=== PATIENT | female | born 1955 | race Caucasian/White ===

== ENCOUNTER 2019-12-05 11:58 | Emergency (ER) | payer MEDICARE, SELFPAY ==
[2019-12-05 12:24] LABS: Glucose Point of Care 139 (65-105)
[2019-12-05 12:27] VITALS: BP 164/80; PULSE 84; RESP 13; TEMP 37.1; O2SAT 97
[2019-12-05] MEDS: FAMOTIDINE 20 MG/2 ML VIAL IV PUSH (12:35)
[2019-12-05] MEDS: diphenhydrAMINE HCl INJ 50 MG/ML VIAL 25 MG IV PUSH (12:37)
[2019-12-05] MEDS: methylPREDNISolone SOD SUCC 125 MG VIAL 80 MG IV PUSH (12:40)
[2019-12-05 12:41] VITALS: BP 149/71; PULSE 78; RESP 10; O2SAT 98
[2019-12-05 12:42] VITALS: BP 149/71; PULSE 82; RESP 13; O2SAT 98
[2019-12-05 12:59] LABS: Glucose 148 mg/dL (65-105)
--- NOTE | 2019-12-05 13:01 | ED.ALLEREA ---
HPI - Allergic Reaction General Chief complaint: Allergic Reaction Stated complaint: allergic reaction Time Seen by Provider: 12/05/19 12:08 Source: patient Mode of arrival: ambulatory Limitations: no limitations History of Present Illness HPI narrative: Patient with history of presents for evaluation of a left reaction to the face that began yesterday evening and has worsened throughout the night. Patient states that she has had other episodes with allergic reaction to the face as she has sensitive skin and is allergic to multiple fragrances. Patient reports itching, swelling, burning from her eyelids down to her chin. Patient denies involvement inside of her mouth or in her throat. Patient denies chest tightness, shortness of breath or trouble swallowing or breathing. Patient states she normally has been put on some prednisone and her symptoms resolve over a few days. She has not had any ill effects from the prednisone other than elevated blood sugar. Patient is not on insulin but takes Jardiance for her blood sugars twice daily. Patient denies being on lisinopril. Related Data Home Medications Medication Instructions Recorded Confirmed calcium carbonate 600 mg calcium 600 mg PO DAILY 05/04/19 (1,500 mg) tablet cholecalciferol (vitamin D3) 25 1,000 unit PO DAILY 05/04/19 mcg (1,000 unit) chewable tablet chlorthalidone 12.5 mg PO DAILY 12/05/19 pantoprazole 40 mg PO QAM 12/05/19 Allergies Allergy/AdvReac Type Severity Reaction Status Date / Time SADIE Inhibitors Allergy Unknown Unknown Verified 12/05/19 12:35 fluticasone Allergy Unknown Unknown Verified 12/05/19 12:35 latex Allergy Unknown Unknown Verified 12/05/19 12:35 Penicillins Allergy Unknown Rash Verified 12/05/19 12:35 Review of Systems Review of Systems: Narrative: CONSTITUTIONAL: Denies fever, chills, or sweats. EYES: Denies visual changes, redness, or discharge. ENT: Denies rhinorrhea, congestion, sore throat, or otalgia. CARDIOVASCULAR: Denies chest pain, palpitations, or edema. RESPIRATORY: Denies cough or dyspnea. GASTROINTESTINAL: Denies abdominal pain, nausea, vomiting, or diarrhea. GENITOURINARY: Denies dysuria or hematuria. SKIN: Reports rash and itching. MUSCULOSKELETAL: Denies back pain, joint pain, or myalgia. NEUROLOGIC: Denies headache, numbness, dizziness, or weakness. PSYCHIATRIC: Denies anxiety or depression. [facility] Past Medical History Medical History (Updated 12/05/19 @ 13:25 by Neftaly Chen PA-C) [place] (actinic keratosis) Essential (primary) hypertension Gastroesophageal reflux disease Mixed hyperlipidemia Type 2 diabetes mellitus with retinopathy, without long-term current use of insulin Family History Family History (Updated 08/15/16 @ 14:56 by DOCTOR UNKNOWN) Other Diabetes mellitus Family history of cardiovascular disease Hypertension Social History Social History Smoking status: Never smoker Alcohol intake: current Gender identity (if verbalized by the patient): Female Exam Narrative: Exam Narrative: GENERAL: Well-appearing, well-nourished, and in no acute distress. HEAD: Normocephalic, atraumatic. EYES: PERRLA and EOMI. ENT: Nares clear, no rhinorrhea or epistaxis. Mucous membranes moist. Oropharynx without tonsillar hypertrophy exudate or other lesions. No rash or swelling noted to oropharynx. Airway patent. Bilateral TMs pearly crespo nonbulging NECK: Supple. No adenopathy or masses. CHEST: Clear to auscultation. No respiratory distress. No wheezes rales or rhonchi HEART: Regular rate and rhythm. ABDOMEN: Soft, nontender, nondistended, normal active bowel sounds. EXTREMITIES: Normal range of motion. No edema. SKIN: Swelling with slight warmth and erythema noted to bilateral eyelids cheeks nose and chin. No drainage or open wounds appreciated. Warm, dry. NEURO: No focal deficits. Alert and oriented x3. PSYCH: Normal mood and affect. Course Vital Signs Vital signs: Vital Signs
[2019-12-05 13:02] VITALS: BP 139/56; PULSE 67; RESP 11; TEMP 36.8; O2SAT 99
== END 2019-12-05 13:15 | disposition home or self-care (01) ==
PROVIDERS: Physician Assistant; Emergency Provider Emergency Medicine; PCP Internal Medicine
DX: L23.9 Allergic contact dermatitis, unspecified cause (principal); I10 Essential (primary) hypertension; K21.9 Gastro-esophageal reflux disease without esophagitis; E78.2 Mixed hyperlipidemia; E11.319 Type 2 diabetes mellitus with unspecified diabetic retinopathy without macular edema
CPT/HCPCS: 36415; 82947; 96374; 96375; 99284; J1200; J2930

== ENCOUNTER → 2020-03-14 12:26 | Outpatient (CLI) | payer MEDICARE, SELFPAY ==
--- NOTE | ~2020-03-14 | MR_ITS ---
EXAMINATION: MR wrist RT wo con DATE: 03/14/2020 13:20 INDICATION: Chronic pain and intermittent swelling at the radial/volar aspect of the right wrist. TECHNIQUE: Magnetic resonance imaging (MRI) of the right wrist was performed without intravenous cont rast. Sequences performed include axial PD-weighted FSE and PD-weighted FS FSE, coronal PD-weighted F S FSE and T1-weighted SE, and sagittal PD-weighted FS FSE and PD-weighted FSE. COMPARISON: Right hand radiographs dated 02/23/2020 FINDINGS: Intrinsic ligaments: Partial tear of the central membranous component of the scapholunate ligament. The dorsal and volar c omponents appear to remain intact. The lunotriquetral ligament is normal. Triangular fibrocartilage complex (TFCC): Partial tear of the ulnar styloid attachment of the angular fibrocartilage complex. There is an addit ional shallow partial thickness tear along the distal articular surface of the central fiber cartilag inous disc. The radial and foveal attachments, the dorsal and volar radioulnar ligaments and the luno triquetral ligaments are normal. The extensor carpi ulnaris tendon sheath is normal. Extensor wrist: Extensor tendons of the wrist are normal. No tenosynovitis. Flexor wrist: The flexor tendons of the wrist are normal. No abnormality in the carpal tunnel with normal median n erve. Guyon's canal: Guyon's canal including the ulnar nerve and artery are normal. Bones/other: Normal marrow signal. No fracture, erosions, avascular necrosis or abnormal marrow replacing process. Mild osteoarthritis at the distal radioulnar, radiocarpal, triscaphe and first carpal metacarpal gabriele nts. No focal cartilage defects or underlying degenerative subarticular changes appreciated. There is a multilobulated ganglion cyst positioned immediately deep to the marker at the volar aspect of the wrist which extends proximally 1.8 cm medial collateral along the deep margin radioscaphocapitate lig ament and which measures up to 5 x 5 mm in maximal orthogonal dimensions. IMPRESSION: 1. 18 x 5 x 5 mm ganglion cyst at the volar aspect of the wrist which underlies the marker indicating the region of concern. 2. Partial tear of the central fiber cartilaginous disc and ulnar styloid attachment of the triangula r fibrocartilage complex. 3. Partial tear of the central membranous component of the scapholunate ligament which is of doubtful clinical significance with intact dorsal and volar components. 4. 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 Reviewed, dictated and finalized at location A. INE PRECISION ETCHER IMPRESSION: 1. 18 x 5 x 5 mm ganglion cyst at the volar aspect of the wrist which underlies the marker indicating the region of concern. 2. Partial tear of the central fiber cartilaginous disc and ulnar styloid attac hment of the triangular fibrocartilage complex. 3. Partial tear of the central membranous component of the scapholunate ligamen t which is of doubtful clinical significance with intact dorsal and volar compo nents. 4. Mild posterior articular osteoarthritis at the wrist and radial aspect of th e carpus.
== END ==
PROVIDERS: PCP Internal Medicine; Visit Provider Orthopaedic Surgery
DX: M25.831 Other specified joint disorders, right wrist (principal); M19.041 Primary osteoarthritis, right hand
CPT/HCPCS: 73221

== ENCOUNTER 2020-03-27 12:47 | Outpatient (CLI) | payer MEDICARE, SELFPAY ==
--- NOTE | 2020-03-27 12:48 | ECG_ITS ---
Measurements Intervals [place] Rate: 73 P: 42 VA: 170 QRS: 28 QRSD: 99 T: 162 QT: 358 QTc: 395 Interpretive Statements SINUS RHYTHM DELAYED PRECORDIAL R/S TRANSITION ST-T WAVE ABNORMALITY IN HIGH LATERAL LEADS- CONSIDER ISCHEMIA BASELINE ARTIFACT- V4-V5 ABNORMAL ECG Electronically Signed On 03-27-2020 13:29:04 ELEMENTARY TUTOR by Eddie Gutierrez D.O.
== END 2020-03-27 12:48 | disposition home or self-care (01) ==
LOC: ANHSURGERY 12:48
PROVIDERS: PCP Internal Medicine; Visit Provider Orthopaedic Surgery
DX: Z01.810 Encounter for preprocedural cardiovascular examination (principal); R94.31 Abnormal electrocardiogram [ECG] [EKG]
CPT/HCPCS: 93005

== ENCOUNTER 2020-04-03 00:14 | Outpatient (CLI) | payer MEDICARE, SELFPAY ==
[2020-04-03 20:45] LABS: SARS-CoV-2 RNA PCR Negative
== END 2020-04-03 00:15 | disposition home or self-care (01) ==
LOC: ANHCOVIDDT 00:14
PROVIDERS: PCP Internal Medicine; Visit Provider Orthopaedic Surgery
DX: Z01.818 Encounter for other preprocedural examination (principal); Z20.828 Contact with and (suspected) exposure to other viral communicable diseases
CPT/HCPCS: 87635; C9803; U0003

== ENCOUNTER 2020-04-06 01:51 | Day surgery (SDC) | payer MEDICARE, SELFPAY ==
[2020-03-22 13:16] VITALS: BMI 24.1
--- NOTE | 2020-03-24 14:02 | PC.NURSE ---
DATE AND TIME CHANGE GIVEN. NO CHANGE IN HEALTH HX SINCE LAST INTERVIEW ON 03/23/20
--- NOTE | 2020-03-29 11:07 | PM.IMHP ---
H&P: HPI History of Present Illness Date/Time: 03/29/20 11:07 Chief complaint: right carpal tunnel syndrome, right ganglion cyst Narrative: Ilda Thomas is a 64 year old female With right wrist pain and mass for the past year. Mass over the radial side of the wrist tender to palpation. Pain at the wrist which radiates into the palm. Numbness and tingling of the thumb and index finger. Not relieved with previous conservative treatment. Patient presents for operative treatment. MRI of the right wrist was done which shows radial sided cyst with location next to median nerve. Review of Systems Constitutional: Constitutional: Denies fever(s) Eyes: Eyes: Denies blurry vision ENT: Reports Normal hearing present Cardiovascular: Cardiovascular: Denies chest pain and Denies dyspnea Respiratory: Respiratory: Denies dyspnea and Denies wheezing Gastrointestinal: Gastrointestinal: Denies abdominal pain Genitourinary: Genitourinary: Denies urinary urgency Musculoskeletal: Musculoskeletal: Reports as per HPI and Denies numbness Integumentary/Breasts: Skin/Breast: Denies changing lesions and Denies sores Neurologic: Reports Normal hearing present, Denies behavioral changes, Denies confusion, Denies numbness and Denies convulsions Psychiatric: Psychiatric: Denies behavioral changes, Denies confusion and Denies hallucinations Endocrine: Endocrine: Denies heat intolerance Hematologic/Lymphatic: Hematologic/Lymphatic: Denies easy bleeding Allergic/Immunologic: Allergic/Immunologic: Denies wheezing PMFSH Past Medical History Medical History [place] (actinic keratosis) Allergies Carpal tunnel syndrome of right wrist Essential (primary) hypertension Fatty liver Gastroesophageal reflux disease Heart disease High cholesterol Hypertension Irritable bowel syndrome Latex allergy Mass of joint of right wrist Mixed hyperlipidemia Osteopenia Seasonal allergies Type 2 diabetes mellitus with retinopathy, without long-term current use of insulin Vision abnormalities Surgical History Surgical History H/O: hysterectomy Hx of cholecystectomy Family History Family History Mother Heart disease Hypertension Diabetes mellitus Other Family history of cardiovascular disease Social History Social History Years smoked: 3 Smoking status: Never smoker Smoking end date: 05/05/73 Alcohol intake: current Gender identity (if verbalized by the patient): Female Spiritual care concerns: No Meds Home Medications and Allergies Home Medications Medication Instructions Recorded Confirmed Type olmesartan 20 mg tablet 20 mg PO DAILY #90 tablet 06/07/19 03/24/20 Rx chlorthalidone 12.5 mg PO DAILY 12/05/19 03/24/20 History krill oil 500 mg capsule 1,000 mg PO DAILY cap 02/09/20 03/24/20 History metaxalone 800 mg tablet 400 mg PO BID PRN #90 tablet 02/09/20 03/24/20 Rx multivitamin 1 tablet PO DAILY 02/09/20 03/24/20 History calcium carbonate-vitamin D3 1 tablet PO BID 03/22/20 03/24/20 History [Lars-600 With Vitamin D] dorzolamide 1 drp OPHTHALMIC (EYE) BID 03/22/20 03/24/20 History empagliflozin [Jardiance] 12.5 mg PO DAILY 03/22/20 03/24/20 History ezetimibe 10 mg PO DAILY 03/22/20 03/24/20 History potassium chloride [K-Tab] 10 meq PO QPM 03/22/20 03/24/20 History Allergies Allergy/AdvReac Type Severity Reaction Status Date / Time SADIE Inhibitors Allergy Unknown COUGHING Verified 03/24/20 10:32 adhesive tape Allergy Unknown Itching/RED Verified 03/24/20 10:32 NESS fluticasone Allergy Unknown Unknown Verified 03/24/20 10:32 latex Allergy Unknown ITCHING/ROQUE Verified 03/24/20 10:32 H Penicillins Allergy Unknown Rash Verified 03/24/20 10:32 Exam Const: General: cooperative, healthy appea
--- NOTE | 2020-04-06 11:26 | WPDHPUPDATE1 ---
History and Physical Update Update Date/Time: 04/06/20 11:26 History and Physical has been reviewed, including an updated exam of the patient. There are NO changes in the patient's condition. Covid test negative. Risks, benefits, and alternatives have been discussed and questions answered. Patient agrees to proceed with procedure.
[2020-04-06] MEDS: ACETAMINOPHEN 500 MG TABLET 1000 MG PO (11:36)
[2020-04-06 11:43] VITALS: BP 142/60; PULSE 73; RESP 14; TEMP 36.4; O2SAT 100; BMI 25.0
[2020-04-06 12:08] LABS: Glucose Point of Care 165 (65-105)
[2020-04-06] MEDS: KETOROLAC 15 MG/ML VIAL (*BKC) IV PUSH (12:21)
[2020-04-06] MEDS: LACTATED RINGERS 1,000 ML 30 ML IV CONT (12:22)
[2020-04-06] MEDS: CLINDAMYCIN 900 MG/D5W 50 ML 900 MG/50 ML PIGGYBACK 50 MG IVPB (13:52)
[2020-04-06] MEDS: LIDOCAINE HCL 2% LOCAL INJ 20 ML VIAL INFILTRATE (14:14)
[2020-04-06 14:41] VITALS: BP 126/59; PULSE 76; RESP 14; O2SAT 100
--- NOTE | 2020-04-06 14:52 | PM.PROC ---
Procedure Note - Detailed Date of procedure: 04/06/20 Pre-op diagnosis: right carpal tunnel syndrome, right ganglion cyst Post-op diagnosis: same Procedure performed: Excision of right wrist volar ganglion cyst, right carpal tunnel release Description of procedure: Operative Indications: The patient has history, exam findings, and electrodiagnostic findings consistent with carpal tunnel syndrome. Conservative treatment with bracing/ splinting, activity modifications, medication, ergonomics, injections has failed. Symptoms are daily and affect ability to use hand. Also with volar wrist cyst. MRI demonstrates cyst near the median nerve proximal to the wrist. The patient desires operative treatment. Procedure: After informed consent was given, the operative extremity was marked in the preoperative holding area. Intravenous antibiotics were given. The patient was taken to the operating room and underwent conscious sedation by the anesthesia team. A time-out was performed confirming patient, procedure, and operative site. Local infiltrate at the carpal tunnel was done with 0.5% marcaine. Prepping and draping was done using chloraprep skin solution with usual surgical sterile technique. Anatomic landmarks marked on skin. Hand was exsanguinated and arm tourniquet inflated to 225mmHg. Incision was made with #15 blade knife in skin crease on volar palm. Hemostasis was achieved with electrocautery. Careful dissection was carried down to the transverse carpal ligament. Retractors were placed. Ligament overlying median nerve was incised in line with skin incision using yuhaaviatam blade. Proximal and distal release was done with metzenbaum scissors under direct visualization. Mosquito clamp was placed deep to ligament to protect nerve during release. The nerve was inspected and noted to be intact with mild flattening. Tendons had good excursion. The tourniquet was then released and pressure held. Bleeding points were coagulated with bovie cautery. The wound was thoroughly irrigated with antibiotic solution. The skin was closed with 4-0 nylon interrupted suture. Longitudinal incision then made proximal to the wrist crease over the volar slightly ulnar cyst with a 15 blade knife. Hemostasis controlled electrocautery. Fascia incised in line with skin incision. The subfascial cyst was noted to the ulnar side and was carefully dissected out from the rounding soft tissue. This was passed off as specimen. Thirty not appear to be any vascular or neural element to the cyst itself. Wound irrigated with solution. Subcutaneous tissue repaired with 3 0 Monocryl interrupted suture. Skin repaired for nylon interrupted suture. A sterile dressing was applied. Good capillary refill in the fingers and thumb was noted. The patient was transported to the recovery room in stable condition. All sponge, needle, instrument counts were correct at the end of the case. Anesthesia: MAC and local Surgeon: Chandana Washburn MD [employer] Planner: 1st carpenter assistant installer Estimated blood loss (mL): 5 Tourniquet time (min): 15 Drains: No Packing: No Pathology: yes (Volar mass right wrist) Complications: None Condition: stable Disposition: PACU
[2020-04-06 15:00] VITALS: BP 136/74; PULSE 64; RESP 12
[2020-04-06 15:25] VITALS: BP 127/58; PULSE 57; RESP 20
== END 2020-04-06 15:39 | disposition home or self-care (01) ==
PROVIDERS: PCP Internal Medicine; Visit Provider Orthopaedic Surgery
PROC: (CPT 64721; principal; 2020-04-06 13:00)
DX: G56.01 Carpal tunnel syndrome, right upper limb (principal); M67.431 Ganglion, right wrist; I11.9 Hypertensive heart disease without heart failure; E78.2 Mixed hyperlipidemia; E11.319 Type 2 diabetes mellitus with unspecified diabetic retinopathy without macular edema; K76.0 Fatty (change of) liver, not elsewhere classified; K58.9 Irritable bowel syndrome, unspecified; K21.9 Gastro-esophageal reflux disease without esophagitis
CPT/HCPCS: 64721; 25111; 88304; 88305; A9270; C9803; J1885; J2250; J2405; J2704; J3010; J7120; U0003

== ENCOUNTER 2020-12-06 13:13 | Outpatient (CLI) | payer MEDICARE, SELFPAY ==
--- NOTE | ~2020-12-06 | MM_ITS ---
EXAMINATION: MM screening [facility] BI w amanda HISTORY: Screening TECHNIQUE: Craniocaudal and mediolateral oblique 3-D tomosynthesis images were obtained and synthetic 2-D images were generated. CAD analysis was submitted and interpreted. COMPARISON: Comparison to multiple prior studies sequentially, with oldest reviewed study dated 08/2017. BREAST PARENCHYMAL COMPOSITION: There are scattered areas of fibroglandular density. FINDINGS: There is no evidence of suspicious mass, calcification, or architectural distortion to sugg est malignancy in either breast. There has been no suspicious interval change. IMPRESSION: 1. No mammographic evidence of malignancy. 2. Recommend routine screening mammography in one year. BI-RADS Category 1: Negative Reviewed, dictated and finalized at location A.
== END 2020-12-06 13:14 | disposition home or self-care (01) ==
LOC: ANHIMG 13:17
PROVIDERS: PCP Internal Medicine; Visit Provider Internal Medicine
DX: Z12.31 Encounter for screening mammogram for malignant neoplasm of breast (principal)
CPT/HCPCS: 77063; 77067

== ENCOUNTER 2021-03-11 20:45 | Emergency (ER) | payer MEDICARE, SELFPAY ==
--- NOTE | ~2021-03-11 | XR_ITS ---
EXAMINATION: XR chest 1V portable DATE: 03/12/2021 00:56 INDICATION: Cough. TECHNIQUE: A single frontal view of the chest was obtained. COMPARISON: Chest 2 views 01/01/2018 FINDINGS: The chest demonstrates clear lungs without pneumonia, pleural effusion, or pneumothorax. Th e heart size is normal. Surgical clips in the right upper quadrant are likely from cholecystectomy. IMPRESSION: 1. No acute cardiopulmonary disease. Reviewed, dictated and finalized at location A. RMATICS ANALYST
[2021-03-11 20:50] VITALS: BP 161/92; PULSE 92; RESP 20; TEMP 37.1; O2SAT 98
[2021-03-12] VITALS (7 sets, daily range): BP systolic 165–190; BP diastolic 63–80; PULSE 94–115; RESP 18–22; TEMP 36.7; O2SAT 98
--- NOTE | 2021-03-12 01:24 | ED.GENADULT ---
HPI - General Adult General Chief complaint: Upper Respiratory Infection Stated complaint: Shortness of Breath Time Seen by Provider: 03/12/21 00:38 Source: RN notes reviewed History of Present Illness HPI narrative: Patient presents emergency department from home for upper respiratory infection. Patient states symptoms again approximately 5 days ago. States that she has had a cough this been productive of yellow sputum, sinus pressure, rhinorrhea, sore throat and pharyngitis she also notes some mild nausea she denies any fevers or chills chest pain shortness of breath abdominal pain or any other symptoms states she does have 2 grandchildrenwith RSV patient states she has received her Covid vaccinations as well as her booster Related Data Home Medications Medication Instructions Recorded Confirmed multivitamin 1 tablet PO DAILY 02/09/20 02/21/21 calcium carbonate-vitamin D3 1 tablet PO BID 03/22/20 02/21/21 dorzolamide 1 drp OPHTHALMIC (EYE) BID 03/22/20 02/21/21 diltiazem HCl 180 mg 180 mg PO DAILY 11/20/20 02/21/21 capsule,extended release 24 hr pantoprazole 40 mg tablet,delayed 40 mg PO QAM 02/21/21 02/21/21 release aspirin 81 mg tablet,delayed 81 mg PO DAILY 02/22/21 release Allergies Allergy/AdvReac Type Severity Reaction Status Date / Time SADIE Inhibitors Allergy Unknown COUGHING Verified 04/18/20 08:26 adhesive tape Allergy Unknown Itching/RED Verified 04/18/20 08:26 NESS fluticasone Allergy Unknown Unknown Verified 04/18/20 08:26 latex Allergy Unknown ITCHING/ROQUE Verified 04/18/20 08:26 H Penicillins Allergy Unknown Rash Verified 04/18/20 08:26 Review of Systems Review of Systems: Gen.: Denies fevers or chills ENT: HPI Respiratory: Reports cough CV: Denies chest pain or palpitations GI: Denies abdominal pain emesis or diarrhea reports nausea Musculoskeletal: Denies back pain or muscle pain Neuro: Denies numbness, tingling, weakness or focal weakness Skin: Denies rash Except as documented, all other systems reviewed and negative [facility] Past Medical History Medical History [place] (actinic keratosis) Allergies Carpal tunnel syndrome of right wrist Essential (primary) hypertension Fatty liver Gastroesophageal reflux disease Heart disease High cholesterol Hypertension Irritable bowel syndrome Latex allergy Mass of joint of right wrist Mild acid reflux Mixed hyperlipidemia Osteopenia Seasonal allergies Type 2 diabetes mellitus with retinopathy, without long-term current use of insulin Vision abnormalities Surgical History Surgical History H/O: hysterectomy Hx of cholecystectomy Family History Family History Mother Heart disease Hypertension Diabetes mellitus Other Family history of cardiovascular disease Social History Social History Years smoked: 3 Smoking status: Never smoker Smoking end date: 05/05/73 Alcohol intake: current Alcohol use details: occasional Gender identity (if verbalized by the patient): Female Spiritual care concerns: No Exam Narrative: APPEARANCE: No acute distress, nontoxic, resting in bed EYES: EOMI HEENT: Normocephalic, atraumatic, TMs clear bilaterally bilateral turbinates boggy mild erythema no exudate posterior pharynx uvula midline tolerating own secretions, hoarse voice RESPIRATORY: No respiratory distress wheezing throughout the bilateral lung hilario no rhonchi or rales CARDIOVASCULAR: Regular rate and rhythm without murmurs rubs or gallops. ABDOMINAL: Soft, nontender, nondistended, no rebound or guarding MUSCULOSKELETAl: Moves all extremities. No clubbing, cyanosis or edema. NEURO: Awake and alert. Following commands, speech normal, no focal deficits SKIN:: Warm, dry. No rashes lesions or abrasions PSYCHI
[2021-03-12] MEDS: methylPREDNISolone SOD SUCC 125 MG VIAL IV PUSH (01:32)
[2021-03-12] MEDS: SODIUM CHLORIDE 0.9% IV 1,000 ML 999 ML IV CONT (01:33)
[2021-03-12] MEDS: ALBUTEROL SULFATE NEB 2.5 MG/0.5 ML INH 5 MG INHALATION ×2 (01:37→02:13)
[2021-03-12] MEDS: IPRATROPIUM BR 0.02% INH SOLN 0.5 MG/2.5 ML VIAL INHALATION ×2 (01:37→02:13)
[2021-03-12 01:45] LABS: Basophils Absolute Auto 0.1 K/mm3 (0.0-0.1); Basophils Percent Auto 0.7 % (0.2-1.2); Eosinophils Absolute Auto 0.1 K/mm3 (0-0.3); Hematocrit 41.9 % (37.0-47.0); Hemoglobin 13.8 g/dL (12.0-15.0); Immature Granulocyte Absolute 0.01 K/mm3 (0.00-0.031); Immature Granulocyte Percent A 0.1 % (0-0.5); Lymphocytes Absolute Auto 1.86 K/mm3 (0.9-3.2); Lymphocytes Percent Auto 26.1 % (18.3-44.2); Mean Corpuscular HGB Conc 32.9 g/dl (32-36); Mean Corpuscular Hemoglobin 30.1 pg (26-34); Mean Corpuscular Volume 91.3 fl (80-100); Mean Platelet Volume 9.3 fl (7.4-10.4); Monocytes Absolute Auto 0.9 K/mm3 (0.1-0.6); Monocytes Percent Auto 12.5 % (2.6-8.5); Neutrophils Absolute Auto 4.3 K/mm3 (1.3-6.7); Neutrophils Percent Auto 59.6 % (45.5-73.1); Platelet Count Result 178 k/mm3 (150-375); Red Blood Count 4.59 M/mm3 (4.2-5.4); Red Cell Distribution Width 13.4 % (11.5-14.5); White Blood Count 7.1 K/mm3 (4.5-10.0)
[2021-03-12 01:56] LABS: Alanine Aminotransferase 30 U/L (4-35); Alkaline Phosphatase 61 U/L (38-126); Anion Gap 8 mmol/L (8-16); Aspartate Amino Transferase 33 U/L (14-36); Bilirubin,Total 0.6 mg/dL (0.2-1.3); Blood Urea Nitrogen 13 mg/dL (7-17); Calcium 9.9 mg/dL (8.4-10.2); Carbon Dioxide 33 mmol/L (22-30); Chloride 99 mmol/L (98-107); Estimated CRCL calculation 71 ml/min; Estimated Glomerular Filt Rate > 60; Glucose 146 mg/dL (65-110); Potassium 3.6 mmol/L (3.4-5.0); Sodium 140 mmol/L (137-145)
[2021-03-12 19:00] LABS: SARS-CoV-2 RNA PCR Negative
== END 2021-03-12 03:26 | disposition home or self-care (01) ==
PROVIDERS: Emergency Provider Emergency Medicine; PCP Internal Medicine
DX: J20.9 Acute bronchitis, unspecified (principal); Z20.822 Contact with and (suspected) exposure to COVID-19; I11.9 Hypertensive heart disease without heart failure; E78.2 Mixed hyperlipidemia; E11.319 Type 2 diabetes mellitus with unspecified diabetic retinopathy without macular edema; K58.9 Irritable bowel syndrome, unspecified; K21.9 Gastro-esophageal reflux disease without esophagitis; M85.80 Other specified disorders of bone density and structure, unspecified site; Z79.82 Long term (current) use of aspirin; Z87.891 Personal history of nicotine dependence
CPT/HCPCS: 36415; 71045; 80053; 85025; 87081; 87804; 87880; 94640; 96361; 96374; 96375; 99284; C9803; J0131; J2930; J7030; U0003; U0005

== ENCOUNTER 2021-03-19 14:52 | Outpatient (CLI) | payer MEDICARE, SELFPAY ==
--- NOTE | ~2021-03-19 | XR_ITS ---
XR chest 2V DATE: 03/19/2021 15:11 INDICATION: Cough, shortness of breath on exertion. Acute bronchitis. TECHNIQUE: PA and lateral views COMPARISON: 03/14/2021 portable AP chest FINDINGS: Normal heart size. No hilar or mediastinal enlargement. No pulmonary infiltrate or consolidation, pulmonary vascular congestion or pleural effusion or pneumo thorax. Status post cholecystectomy. IMPRESSION: No active cardiopulmonary disease Reviewed, dictated and finalized at location A. 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
== END 2021-03-19 14:53 | disposition home or self-care (01) ==
LOC: ANHIMG 14:56
PROVIDERS: PCP Internal Medicine; Visit Provider Clinical Nurse Specialist
DX: J20.9 Acute bronchitis, unspecified (principal)
CPT/HCPCS: 71046

== ENCOUNTER 2021-05-09 01:35 | Day surgery (SDC) | payer MEDICARE, SELFPAY ==
[2021-04-19 14:23] VITALS: BMI 24.9
[2021-05-09 10:36] VITALS: BP 156/65; PULSE 91; RESP 18; TEMP 36.4; O2SAT 98
[2021-05-09] MEDS: LACTATED RINGERS 1,000 ML 150 ML IV CONT (10:54)
[2021-05-09 11:00] LABS: Glucose Point of Care 154 mg/dl (65-105)
--- NOTE | 2021-05-09 11:05 | WPDANESEPPF ---
Anes - Initial Pre Proc Eval Procedure: Operation Date: 05/09/21 13:30 Proposed Procedures p Esophagogastroduodenoscopy & Screening Colonoscopy - Dylon Marie MD Date/Time: 05/09/21 11:05 Surgeon: Dylon Marie MD Pre Op Diagnosis: dysphagia, hx of colon polyps Patient Data Age: 65 Gender: F Height: 1.65 m Weight: 68.8 kg Last Vital Signs Temp 97.6 F 05/09/21 10:36 Pulse 91 05/09/21 10:36 Resp 18 05/09/21 10:36 BP 156/65 H 05/09/21 10:36 Pulse Ox 98 05/09/21 10:36 Allergies Allergy/AdvReac Type Severity Reaction Status Date / Time SADIE Inhibitors Allergy Unknown COUGHING Verified 05/09/21 10:34 adhesive tape Allergy Unknown Itching/RED Verified 05/09/21 10:34 NESS fluticasone Allergy Unknown Unknown Verified 05/09/21 10:34 latex Allergy Unknown ITCHING/ROQUE Verified 05/09/21 10:34 H Penicillins Allergy Unknown Rash Verified 05/09/21 10:34 Home Medications Medication Instructions Recorded Confirmed Type multivitamin 1 tablet PO DAILY 02/09/20 04/19/21 History calcium carbonate-vitamin D3 1 tablet PO BID 03/22/20 04/19/21 History dorzolamide 1 drp OPHTHALMIC (EYE) BID 03/22/20 04/19/21 History olmesartan 20 mg tablet 20 mg PO DAILY #90 tablet 09/08/20 04/19/21 Rx chlorthalidone 25 mg tablet 12.5 mg PO DAILY #90 tablet 03/12/21 04/19/21 Rx potassium chloride 10 mEq 10 meq PO QPM #90 tablet 03/12/21 04/19/21 Rx tablet,extended release diltiazem HCl 180 mg 180 mg PO DAILY #90 cap 03/13/21 04/19/21 Rx capsule,extended release 24 hr doxycycline hyclate 100 mg capsule 100 mg PO DAILY #14 cap 03/19/21 04/19/21 Rx icosapent ethyl 1 gram capsule 2 g PO BID #360 cap 04/02/21 04/19/21 Rx dulaglutide 0.75 mg/0.5 mL 0.75 mg SUBCUT WEEKLY #2 ml 04/19/21 04/19/21 Rx subcutaneous pen injector Laboratory Tests 05/09/21 10:57 POC Capillary Glucose 154 mg/dl H mg/dl (65-105) Patient hx anesthesia problems: none Family hx anesthesia problems: none Results Review: All pre-operative results and documents have been reviewed as part of the pre-operative evaluation. [facility] Past Medical History Medical History AK (actinic keratosis) Allergies Carpal tunnel syndrome of right wrist Essential (primary) hypertension Fatty liver Gastroesophageal reflux disease Heart disease High cholesterol Hypertension Irritable bowel syndrome Latex allergy Mass of joint of right wrist Mild acid reflux Mixed hyperlipidemia Osteopenia Seasonal allergies Type 2 diabetes mellitus with retinopathy, without long-term current use of insulin Vision abnormalities Surgical History Surgical History H/O: hysterectomy Hx of cholecystectomy Family History Family History Mother Heart disease Hypertension Diabetes mellitus Other Family history of cardiovascular disease Social History Social History Years smoked: 3 Smoking status: Never smoker Smoking end date: 05/05/73 Alcohol intake: never Alcohol use details: occasional Substance use: never Substance use type: does not use Living arrangements: with family Gender identity (if verbalized by the patient): Female Spiritual care concerns: No Anes - Eval Final PreProcedure Day of Procedure 05/09/21 11:05 Patient weight: overweight Heart: regular rate and rhythm Lungs: clear to auscultation Airway: Mallampati scale class II Neurological: alert and oriented Last oral intake: >/= 8 hours ASA classification: III Emergent: no Anesthetic plan: proceed Anesthesia type and monitoring: general GIVS and standard monitoring Results Review: All pre-operative results and documents have been reviewed as part of the pre-operative evaluation. Informed Consent: The patient's anesthetic plan and its att
--- NOTE | 2021-05-09 11:07 | PM.HPGS ---
History of Present Illness History of Present Illness Consent: Risks, benefits, and alternatives have been discussed and questions answered. Patient agrees to proceed with procedure. Chief complaint: dysphagia, hx of colon polyps Narrative: Ilda Thomas is a 65 year old female [employer] that she has had discomfort in her epigastric area particularly after meals. Is a pain that sometimes seems to be present most of the day. She has noticed a bulge particularly if she is sitting up. At 1 time she thought she had a hernia but some doctor told her that she could not have it repaired unless she paid out of pocket for it. She has noticed for the past year or so that she has dysphagia for solid food. Pork and other meats as well as bread will seem to get stuck she would need to stop eating for a while this is happening almost every day lately. She gets occasional heartburn but is not on any medication for now. When she had an endoscopy in 2017 she was found to have multiple small erosions and took pantoprazole she thinks for a month or to. She is having regurgitation if she bends over and in particular at night when lying down. This will cause her to cough or choke. She has not been gaining weight in fact her weight has dropped from a high of 185 lb to 147 at present. Her bowel movements are fairly regular although at times she does not have a bowel movement for few days. Then even if it is not hard it feels like that is not coming out properly. She has been hospitalized for diverticulitis twice. She needs to wear a loose belt because sometimes it aggravates her diverticulosis. She has not seen blood in her stools. She did have 2 adenomatous polyps removed about 5 years ago Review of Systems Review of Systems: All systems reviewed & are unremarkable except as noted in HPI and below PMFSH Past Medical History Medical History AK (actinic keratosis) Allergies Carpal tunnel syndrome of right wrist Essential (primary) hypertension Fatty liver Gastroesophageal reflux disease Heart disease High cholesterol Hypertension Irritable bowel syndrome Latex allergy Mass of joint of right wrist Mild acid reflux Mixed hyperlipidemia Osteopenia Seasonal allergies Type 2 diabetes mellitus with retinopathy, without long-term current use of insulin Vision abnormalities Surgical History Surgical History H/O: hysterectomy Hx of cholecystectomy Family History Family History Mother Heart disease Hypertension Diabetes mellitus Other Family history of cardiovascular disease Social History Social History Years smoked: 3 Smoking status: Never smoker Smoking end date: 05/05/73 Alcohol intake: never Alcohol use details: occasional Substance use: never Substance use type: does not use Living arrangements: with family Gender identity (if verbalized by the patient): Female Spiritual care concerns: No Meds Home Medications and Allergies Home Medications Medication Instructions Recorded Confirmed Type multivitamin 1 tablet PO DAILY 02/09/20 04/19/21 History calcium carbonate-vitamin D3 1 tablet PO BID 03/22/20 04/19/21 History dorzolamide 1 drp OPHTHALMIC (EYE) BID 03/22/20 04/19/21 History olmesartan 20 mg tablet 20 mg PO DAILY #90 tablet 09/08/20 04/19/21 Rx chlorthalidone 25 mg tablet 12.5 mg PO DAILY #90 tablet 03/12/21 04/19/21 Rx potassium chloride 10 mEq 10 meq PO QPM #90 tablet 03/12/21 04/19/21 Rx tablet,extended release diltiazem HCl 180 mg 180 mg PO DAILY #90 cap 03/13/21 04/19/21 Rx capsule,extended release 24 hr doxycycline hyclate 100 mg capsule 100 mg PO DAILY #14 cap 03/19/21 04/19/21 Rx icosapent ethyl 1 gram capsule 2 g PO BID #360 cap 04/02/21 04/19/21 Rx dulaglutide 0.75
[2021-05-09 11:46] VITALS: BP 145/81; PULSE 80; RESP 12; O2SAT 98
--- NOTE | 2021-05-09 11:50 | SUR.OPER ---
EGD: Start 11:20, End 11:27, Colon: Start 11:33, End 11:46
[2021-05-09 11:56] VITALS: BP 140/81; PULSE 81; RESP 21; O2SAT 100
[2021-05-09 12:06] VITALS: BP 159/83; PULSE 77; RESP 18; O2SAT 100
== END 2021-05-09 12:34 | disposition home or self-care (01) ==
PROVIDERS: PCP Internal Medicine; Visit Provider Internal Medicine Gastroenterology
PROC: 0DJ08ZZ Inspection of Upper Intestinal Tract, Via Natural or Artificial Opening Endoscopic (ICD-10-PCS; CPT 43235; principal; 2021-05-09 13:30)
DX: K22.2 Esophageal obstruction (principal); K21.9 Gastro-esophageal reflux disease without esophagitis; K29.70 Gastritis, unspecified, without bleeding; Z12.11 Encounter for screening for malignant neoplasm of colon; K64.8 Other hemorrhoids; K57.30 Diverticulosis of large intestine without perforation or abscess without bleeding; D12.2 Benign neoplasm of ascending colon; D12.0 Benign neoplasm of cecum; I10 Essential (primary) hypertension; E11.319 Type 2 diabetes mellitus with unspecified diabetic retinopathy without macular edema; K76.0 Fatty (change of) liver, not elsewhere classified; E78.00 Pure hypercholesterolemia, unspecified; K58.9 Irritable bowel syndrome, unspecified; E78.2 Mixed hyperlipidemia; M85.80 Other specified disorders of bone density and structure, unspecified site; Z79.899 Other long term (current) drug therapy
CPT/HCPCS: 43249; 43239; 45380; 45385; 82948; 87081; 88305; J2704; J7120

== ENCOUNTER 2021-07-13 01:52 | Day surgery (SDC) | payer MEDICARE, SELFPAY ==
[2021-07-05 15:25] VITALS: BMI 25.3
--- NOTE | 2021-07-12 13:33 | PM.HPGS ---
History of Present Illness History of Present Illness Consent: Risks, benefits, and alternatives have been discussed and questions answered. Patient agrees to proceed with procedure. Chief complaint: dysphagia Narrative: Ilda Thomas is a 66 year old female who states thatafter her EGD and dilatation in early May her swallowing was better for a few days but it is almost back to what it was prior to the procedure. at that time I dilated her stricture up to 18 mm. Also biopsies were taken for eosinophilic esophagitis which were negative. I told her that they that we would likely need to have her come back in a few months to dilate that further. I had called in a prescription for omeprazole because of her antral gastritis. She had found that it disagreed with her stomach in the past but she had some pantoprazole at home and has been using that but will need a refill. when she has trouble swallowing, it feels as though nothing will go down. If she tries to drink water it will shoot back up. I told her that we may need to consider a modified barium swallow.She states that many years ago, 20 or 25 years ago, She believes that she had that done. All that she can remember that afterwards they told her that she simply needs to take her time swallowing and to try to swallow harder, more forcefully. Review of Systems Review of Systems: All systems reviewed & are unremarkable except as noted in HPI and below PMFSH Past Medical History Medical History AK (actinic keratosis) Allergies Carpal tunnel syndrome of right wrist Coronary artery disease Essential (primary) hypertension Fatty liver Gastroesophageal reflux disease Heart disease High cholesterol History of intracranial hemorrhage Hypertension Irritable bowel syndrome Latex allergy Mass of joint of right wrist Mild acid reflux Mixed hyperlipidemia Osteopenia Seasonal allergies Type 2 diabetes mellitus with retinopathy, without long-term current use of insulin Vision abnormalities Surgical History Surgical History H/O: hysterectomy Hx of cholecystectomy Family History Family History Mother Heart disease Hypertension Diabetes mellitus Father Cancer Other Family history of cardiovascular disease Social History Social History Years smoked: 3 Smoking status: Never smoker Smoking end date: 05/05/73 Alcohol intake: never Alcohol use details: occasional Substance use: never Substance use type: does not use Living arrangements: with family 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 Gender identity (if verbalized by the patient): Female Spiritual care concerns: No Meds Home Medications and Allergies Home Medications Medication Instructions Recorded Confirmed Type multivitamin 1 tablet PO DAILY 02/09/20 07/05/21 History dorzolamide 1 drp OPHTHALMIC (EYE) BID 03/22/20 07/05/21 History chlorthalidone 25 mg tablet 12.5 mg PO DAILY #90 tablet 03/12/21 07/05/21 Rx potassium chloride 10 mEq 10 meq PO QPM #90 tablet 03/12/21 07/05/21 Rx tablet,extended release metaxalone 800 mg tablet 400 mg PO DAILY tablet 05/28/21 07/05/21 History olmesartan 20 mg tablet 20 mg PO DAILY #90 tablet 05/29/21 07/05/21 Rx diltiazem HCl 180 mg 180 mg PO DAILY #90 cap 06/11/21 07/05/21 Rx capsule,extended release 24 hr pantoprazole 40 mg tablet,delayed 40 mg PO QAM #30 tablet 06/12/21 07/05/21 Rx release dulaglutide 0.75 mg/0.5 mL 0.75 mg SUBCUT WEEKLY #2 ml 06/15/21 07/05/21 Rx subcutaneous pen injector Allergies Allergy/AdvReac Type Severity Reaction Status Date / Time SADIE Inhibitors Allergy Unknown COUGHING Verified 07/13/21 11:08 adhesive tape Allergy Unknown Itching/RED Verified 07/13/21 11:08 NESS fluticas
[2021-07-13 11:09] VITALS: BP 145/57; PULSE 68; RESP 20; TEMP 36.9; O2SAT 97
[2021-07-13] MEDS: LACTATED RINGERS 1,000 ML 150 ML IV CONT (11:19)
[2021-07-13 11:25] LABS: Glucose Point of Care 152 mg/dl (65-105)
--- NOTE | 2021-07-13 12:09 | WPDANESEPPF ---
Anes - Initial Pre Proc Eval Procedure: Operation Date: 07/13/21 12:30 Proposed Procedures p Esophagogastroduodenoscopy - Dylon Marie MD Date/Time: 07/13/21 12:09 Surgeon: Dylon Marie MD Pre Op Diagnosis: dysphagia Patient Data Age: 66 Gender: F Height: 1.65 m Weight: 70.4 kg Last Vital Signs Temp 98.4 F 07/13/21 11:09 Pulse 68 07/13/21 11:09 Resp 20 07/13/21 11:09 BP 145/57 H 07/13/21 11:09 Pulse Ox 97 07/13/21 11:09 Allergies Allergy/AdvReac Type Severity Reaction Status Date / Time SADIE Inhibitors Allergy Unknown COUGHING Verified 07/13/21 11:08 adhesive tape Allergy Unknown Itching/RED Verified 07/13/21 11:08 NESS fluticasone Allergy Unknown Unknown Verified 07/13/21 11:08 latex Allergy Unknown ITCHING/ROQUE Verified 07/13/21 11:08 H Penicillins Allergy Unknown Rash Verified 07/13/21 11:08 Home Medications Medication Instructions Recorded Confirmed Type multivitamin 1 tablet PO DAILY 02/09/20 07/05/21 History dorzolamide 1 drp OPHTHALMIC (EYE) BID 03/22/20 07/05/21 History chlorthalidone 25 mg tablet 12.5 mg PO DAILY #90 tablet 03/12/21 07/05/21 Rx potassium chloride 10 mEq 10 meq PO QPM #90 tablet 03/12/21 07/05/21 Rx tablet,extended release metaxalone 800 mg tablet 400 mg PO DAILY tablet 05/28/21 07/05/21 History olmesartan 20 mg tablet 20 mg PO DAILY #90 tablet 05/29/21 07/05/21 Rx diltiazem HCl 180 mg 180 mg PO DAILY #90 cap 06/11/21 07/05/21 Rx capsule,extended release 24 hr pantoprazole 40 mg tablet,delayed 40 mg PO QAM #30 tablet 06/12/21 07/05/21 Rx release dulaglutide 0.75 mg/0.5 mL 0.75 mg SUBCUT WEEKLY #2 ml 06/15/21 07/05/21 Rx subcutaneous pen injector Laboratory Tests 07/13/21 11:20 POC Capillary Glucose 152 mg/dl H mg/dl (65-105) Patient hx anesthesia problems: none Family hx anesthesia problems: none Results Review: All pre-operative results and documents have been reviewed as part of the pre-operative evaluation. [facility] Past Medical History Medical History AK (actinic keratosis) Allergies Carpal tunnel syndrome of right wrist Coronary artery disease Essential (primary) hypertension Fatty liver Gastroesophageal reflux disease Heart disease High cholesterol History of intracranial hemorrhage Hypertension Irritable bowel syndrome Latex allergy Mass of joint of right wrist Mild acid reflux Mixed hyperlipidemia Osteopenia Seasonal allergies Type 2 diabetes mellitus with retinopathy, without long-term current use of insulin Vision abnormalities Surgical History Surgical History H/O: hysterectomy Hx of cholecystectomy Family History Family History Mother Heart disease Hypertension Diabetes mellitus Father Cancer Other Family history of cardiovascular disease Social History Social History Years smoked: 3 Smoking status: Never smoker Smoking end date: 05/05/73 Alcohol intake: never Alcohol use details: occasional Substance use: never Substance use type: does not use Living arrangements: with family 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 Informed Consent: The [facility]
[2021-07-13 12:35] VITALS: BP 146/72; PULSE 68; RESP 18; O2SAT 100
[2021-07-13 12:45] VITALS: BP 138/70; PULSE 62; RESP 17; O2SAT 98
[2021-07-13 12:55] VITALS: BP 148/71; PULSE 62; RESP 18; O2SAT 100
== END 2021-07-13 13:09 | disposition home or self-care (01) ==
PROVIDERS: PCP Internal Medicine; Visit Provider Internal Medicine Gastroenterology
PROC: 0DJ08ZZ Inspection of Upper Intestinal Tract, Via Natural or Artificial Opening Endoscopic (ICD-10-PCS; CPT 43235; principal; 2021-07-13 12:30)
DX: R13.10 Dysphagia, unspecified (principal); K22.2 Esophageal obstruction; K21.9 Gastro-esophageal reflux disease without esophagitis; I25.10 Atherosclerotic heart disease of native coronary artery without angina pectoris; I10 Essential (primary) hypertension; K76.0 Fatty (change of) liver, not elsewhere classified; E78.00 Pure hypercholesterolemia, unspecified; K58.9 Irritable bowel syndrome, unspecified; E78.5 Hyperlipidemia, unspecified; M85.80 Other specified disorders of bone density and structure, unspecified site; E11.319 Type 2 diabetes mellitus with unspecified diabetic retinopathy without macular edema; Z79.899 Other long term (current) drug therapy
CPT/HCPCS: 43249; 82948; J2001; J2704; J7120

== ENCOUNTER 2022-01-17 10:04 | Outpatient (CLI) | payer MEDICARE, SELFPAY ==
--- NOTE | ~2022-01-17 | US_ITS ---
EXAMINATION: US abdomen limited DATE: 01/17/2022 10:48 INDICATION: Generalized abdominal pain. Personal history of other diseases of the digestive system. TECHNIQUE: Multiple grayscale and Doppler ultrasound images of the abdomen were obtained. COMPARISON: Ultrasound abdomen 01/20/2019, CT abdomen and pelvis 07/23/2017 FINDINGS: Abdominal aorta is normal in caliber. The visualized portions of the head of the pancreas a re normal. The liver is normal without focal lesion. No liver surface nodularity. There is normal nicki w in main portal vein. The gallbladder is absent. The common duct is normal and measures 4 mm. Right kidney is normal. IMPRESSION: 1. Normal right upper quadrant ultrasound status post cholecystectomy. Reviewed, dictated and finalized at location A.
== END 2022-01-17 10:05 | disposition home or self-care (01) ==
PROVIDERS: PCP Internal Medicine; Visit Provider Internal Medicine
DX: Z87.19 Personal history of other diseases of the digestive system (principal)
CPT/HCPCS: 76705

== ENCOUNTER 2022-04-05 10:50 | Outpatient (CLI) | payer MEDICARE, SELFPAY ==
--- NOTE | ~2022-04-05 | MM_ITS ---
EXAMINATION: MM screening nancy BI w amanda HISTORY: Screening mammogram, family history of breast cancer in her sister. TECHNIQUE: Craniocaudal and mediolateral oblique 3-D tomosynthesis images were obtained and synthetic 2-D images were generated. CAD analysis was submitted and interpreted. COMPARISON: 12/26/2020, 05/25/2019, 01/06/2018 BREAST PARENCHYMAL COMPOSITION: There are scattered areas of fibroglandular density. FINDINGS: No suspicious mass, calcification, or architectural distortion are identified in either jcarlos ast to suggest malignancy. There has been no suspicious interval change. IMPRESSION: 1. No mammographic evidence of malignancy. 2. Recommend routine screening mammography in one year. BI-RADS Category 1: Negative Reviewed, dictated and finalized at location A. 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
== END 2022-04-05 10:51 | disposition home or self-care (01) ==
LOC: ANHIMG 10:51
PROVIDERS: PCP Internal Medicine; Visit Provider Internal Medicine
DX: Z12.31 Encounter for screening mammogram for malignant neoplasm of breast (principal)
CPT/HCPCS: 77063; 77067

== ENCOUNTER 2023-02-15 10:34 | Emergency (ER) | payer MEDICARE, SELFPAY ==
--- NOTE | ~2023-02-15 | XR_ITS ---
EXAMINATION: XR chest 1V portable DATE: 02/15/2023 12:51 INDICATION: Cough. TECHNIQUE: A single frontal view of the chest was obtained. COMPARISON: Chest 2 views 03/19/2021 FINDINGS: The chest demonstrates clear lungs without pneumonia, pleural effusion, or pneumothorax. Th e heart size is normal. Surgical clips in the right upper quadrant are likely from cholecystectomy. IMPRESSION: 1. No acute cardiopulmonary disease. Reviewed, dictated and finalized at location A.
[2023-02-15 10:37] VITALS: BP 155/70; PULSE 88; RESP 16; TEMP 36.7; O2SAT 99
--- NOTE | 2023-02-15 12:34 | ED.GENADULT ---
HPI - General Adult General Chief complaint: Upper Respiratory Infection Stated complaint: URI Time Seen by Provider: 02/15/23 11:26 History of Present Illness HPI narrative: 67-year-old female to the emergency department for evaluation of cough congestion and conjunctivitis. Patient states the cough has been going on for greater than 1 week but the eye irritation and nasal congestion started a few days ago. Related Data Home Medications Medication Instructions Recorded Confirmed multivitamin 1 tablet PO DAILY 02/09/20 01/20/23 dorzolamide 2 % eye drops 1 drp ophthalmic (eye) BID 03/22/20 01/20/23 cholecalciferol (vitamin D3) 25 1,000 unit PO DAILY 08/27/21 01/20/23 mcg (1,000 unit) capsule Allergies Allergy/AdvReac Type Severity Reaction Status Date / Time SADIE Inhibitors Allergy Unknown COUGHING Verified 02/15/23 11:14 adhesive tape Allergy Unknown Itching/RED Verified 02/15/23 11:14 NESS fluticasone Allergy Unknown Unknown Verified 02/15/23 11:14 latex Allergy Unknown ITCHING/ROQUE Verified 02/15/23 11:14 H Penicillins Allergy Unknown Rash Verified 02/15/23 11:14 Review of Systems Review of Systems: All systems reviewed & are unremarkable except as noted in HPI and below PMFSH Past Medical History Medical History AK (actinic keratosis) Allergies Carpal tunnel syndrome of right wrist Coronary artery disease Essential (primary) hypertension Fatty liver Gastroesophageal reflux disease Heart disease High cholesterol History of intracranial hemorrhage 2014 Hypertension Irritable bowel syndrome Latex allergy Mass of joint of right wrist Mild acid reflux Mixed hyperlipidemia Osteopenia Seasonal allergies Type 2 diabetes mellitus with retinopathy, without long-term current use of insulin Vision abnormalities Surgical History Surgical History H/O: hysterectomy Hx of cholecystectomy Family History Family History Mother Heart disease Hypertension Diabetes mellitus Father Cancer Other Family history of cardiovascular disease Social History Social History (Updated 01/17/23 @ 11:35 by Nasim Nieves MA) Years smoked: 3 Smoking status: Never smoker Smoking end date: 01/01/74 Alcohol intake: never Alcohol use details: occasional Substance use: never Substance use type: does not use Lack of Transportation: No Lack of Food: Never True Current Housing: I Do Not Have Housing Concerned About Future Housing: No Difficulty Paying Gas/Electric Bills: No Difficulty Paying for Meds: No Currently Unemployed: No Education: High School Diploma/GED Difficulty w/ Childcare or Family Care: No Living arrangements: with family Occupation/Education: retired 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 HEAD: normocephalic, atraumatic. EYES: Bilateral conjunctivitis NOSE: Normal no drainage NECK: Supple. No adenopathy, no masses. RESPIRATORY: Airway patent, respirations nonlabored. Clear to auscultation bilaterally, no rales, rhonchi, wheezing. CARDIOVASCULAR: Regular rate and rhythm without murmurs rubs or gallops. ABDOMINAL: Soft, nontender, nondistended, normal bowel sounds MUSCULOSKELETAL: Moves all extremities. NEURO: Alert. Cranial nerves II through XII intact. SKIN: Warm, dry. Normal Color Course Course Emergency Course: 67-year-old female presented the emergency department for evaluation of nasal congestion conjunctivitis and persistent cough. Chest x-ray showed no evidence of pneumonia and patient's influenza RSV and COVID was negative. Patient reports the cough has been ongoing for gre
[2023-02-15 12:52] VITALS: RESP 20
[2023-02-15] MEDS: LEVALBUTEROL NEB 1.25 MG/3 ML INHALATION (12:52)
[2023-02-15 13:00] VITALS: RESP 20
[2023-02-15 13:14] LABS: Influenza A QL RT-PCR Negative (Negative); Influenza B QL RT-PCR Negative (Negative); RSV RNA, RT-PCR Negative (Negative); SARS-CoV-2 RNA PCR Negative (Negative)
[2023-02-15] MEDS: DOXYCYCLINE HYCLATE 100 MG TABLET PO (13:40)
== END 2023-02-15 14:19 | disposition home or self-care (01) ==
PROVIDERS: Emergency Provider Emergency Medicine; PCP Internal Medicine
DX: R05.9 Cough, unspecified (principal); R09.81 Nasal congestion; H10.9 Unspecified conjunctivitis; Z20.822 Contact with and (suspected) exposure to COVID-19; I25.10 Atherosclerotic heart disease of native coronary artery without angina pectoris; I10 Essential (primary) hypertension; E11.319 Type 2 diabetes mellitus with unspecified diabetic retinopathy without macular edema; E78.00 Pure hypercholesterolemia, unspecified; K21.9 Gastro-esophageal reflux disease without esophagitis; E78.2 Mixed hyperlipidemia; K58.9 Irritable bowel syndrome, unspecified; M85.80 Other specified disorders of bone density and structure, unspecified site; Z87.891 Personal history of nicotine dependence; Z90.710 Acquired absence of both cervix and uterus; Z90.49 Acquired absence of other specified parts of digestive tract; Z79.85 Long-term (current) use of injectable non-insulin antidiabetic drugs
CPT/HCPCS: 71045; 87637; 94640; 99283; A9270

== ENCOUNTER 2023-10-06 09:15 | Emergency (ER) | payer MEDICARE, SELFPAY ==
--- NOTE | ~2023-10-06 | CT_ITS ---
CT of the Abdomen and Pelvis: Indication: Abdominal pain Technique: 2.5 mm axial scans were obtained through the abdomen and pelvis following intravenous adm inistration of 100 cc of Omnipaque 350. Dose reduction technique was used on this scan by utilizing a utomated exposure control and iterative reconstruction technique. The dose-length product (DLP) was 5 37.33 mGy-cm. Findings: Scans through the lung bases are unremarkable. The liver, spleen, pancreas, adrenals and right kidney are within normal limits. Cholecystectomy clip s are present. 1.5 cm exophytic left renal mass is suspicious for a solid lesion versus possibly hype rdense cyst. There are atherosclerotic calcifications of the aorta. No lymphadenopathy. There is wall thickening extensive pericolonic inflammatory change involving the proximal sigmoid col on, most compatible with acute diverticulitis. No abscess or free air. Images through the pelvis were performed. Urinary bladder unremarkable. No pelvic mass seen. No ascit es. Impression: Acute diverticulitis of the proximal sigmoid colon. No abscess, free air, or bowel obstruction. 1.5 cm suspected solid exophytic left renal mass. Follow-up, nonemergent pre and postcontrast CT or M R recommended to confirm solid enhancing lesion, which would be suspicious for small renal cell carci noma. Reviewed, dictated and finalized at location M. Impression: Acute diverticulitis of the proximal sigmoid colon. No abscess, free air, or paola wel obstruction. 1.5 cm suspected solid exophytic left renal mass. Follow-up, nonemergent pre an d postcontrast CT or MR recommended to confirm solid enhancing lesion, which wo uld be suspicious for small renal cell carcinoma.
[2023-10-06 09:21] VITALS: BP 141/56; PULSE 78; RESP 18; TEMP 36.7; O2SAT 98
--- NOTE | 2023-10-06 09:40 | ED.ABDPAIN ---
HPI - Abdominal Pain General Chief Complaint: Abdominal Pain Stated Complaint: my diveriticulitis is acting up Time Seen by Provider: 10/06/23 09:20 Related Data Home Medications Medication Instructions Recorded Confirmed multivitamin 1 tablet PO DAILY 02/09/20 10/03/23 dorzolamide 2 % eye drops 1 drp ophthalmic (eye) BID 03/22/20 10/03/23 cholecalciferol (vitamin D3) 25 1,000 unit PO DAILY 08/27/21 10/03/23 mcg (1,000 unit) capsule Allergies Allergy/AdvReac Type Severity Reaction Status Date / Time SADIE Inhibitors Allergy Unknown COUGHING Verified 10/06/23 09:34 adhesive tape Allergy Unknown Itching/RED Verified 10/06/23 09:34 NESS fluticasone Allergy Unknown Unknown Verified 10/06/23 09:34 latex Allergy Unknown ITCHING/ROQUE Verified 10/06/23 09:34 H Penicillins Allergy Unknown Rash Verified 10/06/23 09:34 PMFSH Past Medical History Medical History AK (actinic keratosis) Allergies Carpal tunnel syndrome of right wrist Coronary artery disease Essential (primary) hypertension Fatty liver Gastroesophageal reflux disease Heart disease High cholesterol History of intracranial hemorrhage 2014 Hypertension Irritable bowel syndrome Latex allergy Mass of joint of right wrist Mild acid reflux Mixed hyperlipidemia Osteopenia Seasonal allergies Type 2 diabetes mellitus with retinopathy, without long-term current use of insulin Vision abnormalities Surgical History Surgical History H/O: hysterectomy Hx of cholecystectomy Family History Family History Mother Heart disease Hypertension Diabetes mellitus Father Cancer Other Family history of cardiovascular disease Social History Social History Years smoked: 3 Smoking status: Never smoker Smoking end date: 05/05/73 Alcohol intake: never Alcohol use details: occasional Substance use: never Substance use type: does not use Lack of Transportation: No Lack of Food: Never True Current Housing: I Do Not Have Housing Concerned About Future Housing: No Difficulty Paying Gas/Electric Bills: No Difficulty Paying for Meds: No Currently Unemployed: No Education: High School Diploma/GED Difficulty w/ Childcare or Family Care: No Living arrangements: with family Occupation/Education: retired 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 Gender identity (if verbalized by the patient): Female Spiritual care concerns: No Course Vital Signs Vital signs: Vital Signs Temperature 98.0 F 10/06/23 09:21 Pulse Rate 78 10/06/23 09:21 Respiratory Rate 18 10/06/23 09:21 Blood Pressure 141/56 H 10/06/23 09:21 Pulse Oximetry 98 10/06/23 09:21 Oxygen Delivery Room Air 10/06/23 09:21 Temperature 98.0 F 10/06/23 09:21 Pulse Rate 77 10/06/23 10:42 Respiratory Rate 18 10/06/23 10:42 Blood Pressure 138/53 L 10/06/23 10:42 Pulse Oximetry 99 10/06/23 10:42 Oxygen Delivery Room Air 10/06/23 09:21 MDM - Abdominal Pain Lab Data 10/06/23 09:40 10/06/23 09:40 Labs: Lab Results 10/06/23 10/06/23 Range/Units 09:40 09:53 WBC 13.3 H (4.5-10.0) K/mm3 RBC 4.63 (4.2-5.4) M/mm3 Hgb 13.9 (12.0-15.0) g/dL Hct 41.4 (37.0-47.0) % MCV 89.4 (80-100) fl MCH 30.0 (26-34) pg MCHC 33.6 (32-36) g/dl RDW 13.9 (11.5-14.5) % Plt Count 246 (150-375) k/mm3 MPV 9.7 (7.4-10.4) fl Immature Gran % (Auto) 0.3 (0-0.5) % Neut % (Auto) 74.7 H (45.5-73.1) % Lymph % (Auto) 13.9 L (18.3-44.2) % [place] % (Auto) 9.9 H (2.6-8.5) % Eos % (Auto) 0.7 (0-4.4) % Baso % (Auto) 0.5 (0.2-1.2) % Lymph # (Auto) 1.84 (0.9-3.2) K/mm3 [place] # (Auto) 1.3 H (0.1-0.6) K/mm3 Eos # (Auto) 0.1 (0-0.3) K
[2023-10-06 09:45] LABS: Basophils Absolute Auto 0.1 K/mm3 (0.0-0.1); Basophils Percent Auto 0.5 % (0.2-1.2); Eosinophils Absolute Auto 0.1 K/mm3 (0-0.3); Eosinophils Percent Auto 0.7 % (0-4.4); Hematocrit 41.4 % (37.0-47.0); Hemoglobin 13.9 g/dL (12.0-15.0); Immature Granulocyte Absolute 0.04 K/mm3 (0.00-0.031); Immature Granulocyte Percent A 0.3 % (0-0.5); Lymphocytes Absolute Auto 1.84 K/mm3 (0.9-3.2); Lymphocytes Percent Auto 13.9 % (18.3-44.2); Mean Corpuscular HGB Conc 33.6 g/dl (32-36); Mean Corpuscular Volume 89.4 fl (80-100); Mean Platelet Volume 9.7 fl (7.4-10.4); Monocytes Absolute Auto 1.3 K/mm3 (0.1-0.6); Monocytes Percent Auto 9.9 % (2.6-8.5); Neutrophils Absolute Auto 9.9 K/mm3 (1.3-6.7); Neutrophils Percent Auto 74.7 % (45.5-73.1); Platelet Count Result 246 k/mm3 (150-375); Red Blood Count 4.63 M/mm3 (4.2-5.4); Red Cell Distribution Width 13.9 % (11.5-14.5); White Blood Count 13.3 K/mm3 (4.5-10.0)
[2023-10-06] MEDS: ONDANSETRON INJ 4 MG/2 ML VIAL IV PUSH (09:47)
[2023-10-06] MEDS: SODIUM CHLORIDE 0.9% IV 1,000 ML 999 ML IV CONT (09:47)
[2023-10-06 09:56] LABS: Alanine Aminotransferase 18 U/L (6-35); Albumin Level 4.8 g/dL (3.5-5.1); Alkaline Phosphatase 62 U/L (38-126); Anion Gap 9 mmol/L (4-12); Aspartate Amino Transferase 26 U/L (14-36); Bilirubin,Total 0.6 mg/dL (0.2-1.3); Blood Urea Nitrogen 18 mg/dL (7-17); Calcium 9.3 mg/dL (8.4-10.2); Carbon Dioxide 26 mmol/L (22-30); Chloride 102 mmol/L (98-107); Estimated CRCL calculation 59 ml/min; Estimated Glomerular Filt Rate > 60; Glucose 171 mg/dL (65-110); Lipase 97 U/L (23-300); Potassium 4.1 mmol/L (3.4-5.0); Sodium 137 mmol/L (137-145)
[2023-10-06 09:59] LABS: Appearance Urine Clear (Clear); Bilirubin Urine Negative (Negative); Blood Urine Negative (Negative); Color Urine Yellow (Yellow); Glucose Urine UA Negative (Negative); Ketones Urine Negative (Negative); Leukocyte Esterase Ur Negative LEU/UL (Negative); Nitrate Urine Negative (Negative); Protein Urine Negative (Negative); Specific Grav Ur 1.022 (1.001-1.035); Urobilinogen Urine 0.2 mg/dL (<2.0)
[2023-10-06] MEDS: fentaNYL CITRATE INJ (*CRX) 100 MCG/2 ML VIAL 50 MCG IV PUSH (09:59)
[2023-10-06 10:05] LABS: Add Urine Microscopic? NO
[2023-10-06 10:42] VITALS: BP 138/53; PULSE 77; RESP 18; O2SAT 99
== END 2023-10-06 12:59 | disposition home or self-care (01) ==
PROVIDERS: Emergency Provider Emergency Medicine; PCP Internal Medicine
DX: K57.32 Diverticulitis of large intestine without perforation or abscess without bleeding (principal); I25.10 Atherosclerotic heart disease of native coronary artery without angina pectoris; I10 Essential (primary) hypertension; E78.2 Mixed hyperlipidemia; E11.319 Type 2 diabetes mellitus with unspecified diabetic retinopathy without macular edema; K58.9 Irritable bowel syndrome, unspecified; K21.9 Gastro-esophageal reflux disease without esophagitis; M85.80 Other specified disorders of bone density and structure, unspecified site; Z87.891 Personal history of nicotine dependence; Z90.710 Acquired absence of both cervix and uterus; Z90.49 Acquired absence of other specified parts of digestive tract; Z79.85 Long-term (current) use of injectable non-insulin antidiabetic drugs; Z79.899 Other long term (current) drug therapy; R93.422 Abnormal radiologic findings on diagnostic imaging of left kidney
CPT/HCPCS: 36415; 74177; 80053; 81003; 83690; 85025; 96361; 96374; 96375; 99284; J2270; J2405; J3010; J7030; Q9967

== ENCOUNTER 2023-10-22 15:36 | Outpatient (CLI) | payer MEDICARE, SELFPAY ==
--- NOTE | ~2023-10-22 | MM_ITS ---
EXAMINATION: MM screening nancy BI w amanda HISTORY: Screening TECHNIQUE: Craniocaudal and mediolateral oblique 3-D tomosynthesis images were obtained and synthetic 2-D images were generated. CAD analysis was submitted and interpreted. COMPARISON: Comparison to multiple prior studies sequentially, with oldest reviewed study dated 08/2017. BREAST PARENCHYMAL COMPOSITION: Not dense: There are scattered areas of fibroglandular density. FINDINGS: There is a developing asymmetry in the mid outer aspect of the right breast adjacent to the nipple anteriorly. The left breast is stable without evidence for malignancy. IMPRESSION: 1. Developing right breast asymmetry. 2. Additional mammographic views and possible breast ultrasound are recommended. BI-RADS Category 0: Incomplete: Needs additional imaging evaluation. Reviewed, dictated and finalized at location B. IMPRESSION: 1. Developing right breast asymmetry. 2. Additional mammographic views and possible breast ultrasound are recommended . BI-RADS Category 0: Incomplete: Needs additional imaging evaluation.
== END 2023-10-22 15:37 | disposition home or self-care (01) ==
LOC: ANHIMG 15:36
PROVIDERS: PCP Internal Medicine; Visit Provider Student in an Organized Health Care Education/Training Program
DX: Z12.31 Encounter for screening mammogram for malignant neoplasm of breast (principal); R92.8 Other abnormal and inconclusive findings on diagnostic imaging of breast
CPT/HCPCS: 77063; 77067

== ENCOUNTER 2023-10-30 09:26 | Outpatient (CLI) | payer MEDICARE, SELFPAY ==
--- NOTE | ~2023-10-30 | MR_ITS ---
EXAMINATION: MR abdomen wo/w con DATE: 10/30/2023 10:54 INDICATION: Other specified disorders of the kidneys and ureter. Left kidney mass. TECHNIQUE: Magnetic resonance imaging (MRI) of the abdomen was performed without and with 13 mL Multi Steph intravenous contrast. COMPARISON: CT abdomen and pelvis 10/06/2023 FINDINGS: The liver and spleen are normal. The gallbladder is absent. The pancreas, adrenal glands, and right k idney are normal. There is a 15 mm hemorrhagic cyst in left kidney. There are no dilated loops of bow el. There are no pathologically enlarged lymph nodes. There is no free intraperitoneal fluid. IMPRESSION: 1. Benign hemorrhagic cyst in left kidney correlating with the CT abnormality. Reviewed, dictated and finalized at location A.
== END 2023-10-30 09:27 | disposition home or self-care (01) ==
LOC: ANHIMG 09:30
PROVIDERS: PCP Internal Medicine; Visit Provider Nurse Practitioner
DX: N28.89 Other specified disorders of kidney and ureter (principal)
CPT/HCPCS: 74183; A9577

== ENCOUNTER 2023-11-07 11:00 | Outpatient (CLI) | payer MEDICARE, SELFPAY ==
--- NOTE | ~2023-11-07 | MM_ITS ---
EXAMINATION: MM diagnostic nancy RT w amanda HISTORY: Right subareolar asymmetric density TECHNIQUE: Additional 3-D tomosynthesis spot compression images of the right breast were performed an d synthetic 2-D images were generated. CAD analysis was submitted and interpreted. COMPARISON: 10/22/2023, 04/05/2022 BREAST PARENCHYMAL COMPOSITION:Not Dense. There are scattered areas of fibroglandular density. FINDINGS: The right subareolar asymmetric density effaces with spot compression. No persistent mass l esion or distortion. No suspicious microcalcifications. IMPRESSION: No mammographic evidence for malignancy. BI-RADS Category 1: Negative Reviewed, dictated and finalized at location .
== END 2023-11-07 11:01 | disposition home or self-care (01) ==
LOC: ANHIMG 11:02
PROVIDERS: PCP Internal Medicine; Visit Provider Student in an Organized Health Care Education/Training Program
DX: N64.89 Other specified disorders of breast (principal)
CPT/HCPCS: 77061; 77065; G0279

== ENCOUNTER 2024-07-05 10:06 | Emergency (ER) | payer MEDICARE, SELFPAY ==
[2024-07-05] VITALS (20 sets, daily range): BP systolic 148–200; BP diastolic 54–96; PULSE 82–105; RESP 10–22; TEMP 36.6–36.8; O2SAT 94–100
--- NOTE | 2024-07-05 13:03 | ED.HA ---
HPI - Headache General Chief Complaint: Upper Respiratory Infection Stated Complaint: sinuses Time Seen by Provider: 07/05/24 12:58 Focused HPI: Patient is a 69-year-old female who presents to the ER with complaints of a headache that started on Friday, three days ago. She reports the pain is on the left side of her forehead, top of her head, jaw teeth and neck. Patient denies any congestion, cough, sore throat, mastoid tenderness. She endorses a history of high blood pressure, diabetes, ?palpitations, and brain bleed. Patient denies any visual changes or one-sided weakness/tingling/numbness at this time. GENERAL: Well-appearing, well-nourished, and in no acute distress. HEAD: Normocephalic, atraumatic. CHEST: Clear to auscultation. ?No respiratory distress. HEART: Tachycardia NEURO: ?Alert and oriented x3. Patient screened in triage and initial orders placed.? ?Additional care and disposition to be based upon?diagnostic testing and treatment. Related Data Home Medications ?Medication ?Instructions ?Recorded ?Confirmed ?Last Taken ?Type multivitamin 1 tablet PO DAILY 02/09/20 01/23/24 07/12/21 History dorzolamide 2 % eye drops 1 drp ophthalmic (eye) BID 03/22/20 01/23/24 07/12/21 History cholecalciferol (vitamin D3) 25 1,000 unit PO DAILY 08/27/21 01/23/24 Unknown History mcg (1,000 unit) capsule pantoprazole 40 mg tablet,delayed 40 mg PO QAM PRN 12/05/23 01/23/24 Unknown History release Allergies Allergy/AdvReac Type Severity Reaction Status Date / Time SADIE Inhibitors Allergy Unknown COUGHING Verified 01/23/24 09:11 adhesive tape Allergy Unknown Itching/RED Verified 01/23/24 09:11 NESS fluticasone Allergy Unknown Unknown Verified 01/23/24 09:11 latex Allergy Unknown ITCHING/ROQUE Verified 01/23/24 09:11 H Penicillins Allergy Unknown Rash Verified 01/23/24 09:11 perfumes Allergy Intermediate Swelling Uncoded 01/23/24 09:11 PMFSH Past Medical History Medical History Breast asymmetry in female History of intracranial hemorrhage 2014 Coronary artery disease Mild acid reflux Seasonal allergies Latex allergy High cholesterol Hypertension Vision abnormalities Carpal tunnel syndrome of right wrist Mass of joint of right wrist Fatty liver Osteopenia Heart disease Irritable bowel syndrome Allergies AK (actinic keratosis) Essential (primary) hypertension Gastroesophageal reflux disease Mixed hyperlipidemia Type 2 diabetes mellitus with retinopathy, without long-term current use of insulin Surgical History Surgical History Hx of cholecystectomy H/O: hysterectomy Family History Family History Mother Heart disease Hypertension Diabetes mellitus Father Cancer Other Family history of cardiovascular disease Social History Social History Years smoked: 3 Smoking status: Never smoker Smoking end date: 05/05/73 Alcohol intake: never Alcohol use details: occasional Substance use: never Substance use type: does not use Do You Feel Safe in your Home?: Yes Lack of Transportation: No Lack of Food: Never True Current Housing: I Do Not Have Housing Concerned About Future Housing: No Difficulty Paying Gas/Electric Bills: No Difficulty Paying for Meds: No Currently Unemployed: No Education: High School Diploma/GED Difficulty w/ Childcare or Family Care: No Living arrangements: with family Occupation/Education: retired 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 Gender identity (if verbalized by the patient): Female Spiritual care concerns: No Course Vital Signs Vital signs: Vital Signs Temperature 36.6 C 07/05/24 10:39 Pulse Rate 89 07/05/24 10:39 Respiratory Rate 18 07/05/24 10:39 Blood Pressure 188/89 H 07/05/24 10:39 Pulse Oximetry 100 07/05/24 10:39 Temperature 36.8 C 07/05/24 12:26 Pulse Rate 82 07/05/24 14:17 Respiratory Rate 10 L 07/05/24 14:03 Blood Pressure 148/54 H 07/05/24 15:01 Pulse Oximetry 97 07/05/24 15:00 Oxygen Delivery Room Air 07/05/24 12:56 MDM - Headache Lab Data 07/05/24 13:06 07/05/24 13:06 Labs: Lab Results 07/05/24 07/05/24 Range/Units 13:06 13:33 WBC 12.4 H (4.5-10.0) K/mm3 RBC 5.35 (4.2-5.4) M/mm3 Hgb 15.8 H (12.0-15.0) g/dL Hct 47.7 H (37.0-47.0) % MCV 89.2 (80-100) fl MCH 29.5 (26-34) pg MCHC 33.1 (32-36) g/dl RDW 13.4 (11.5-14.5) % Plt Count 269 (150-375) k/mm3 MPV 9.0 (7.4-10.4) fl Immature Gran % (Auto) 0.2 (0-0.5) % Neut % (Auto) 85.7 H (45.5-73.1) % Lymph % (Auto) 8.6 L (18.3-44.2) % Nelson % (Auto) 4.8 (2.6-8.5) % Eos % (Auto) 0.2 (0-4.4) % Baso % (Auto) 0.5 (0.2-1.2) % Lymph # (Auto) 1.07 (0.9-3.2) K/mm3 Nelson # (Auto) 0.6 (0.1-0.6) K/mm3 Eos # (Auto) 0.0 (0-0.3) K/mm3 Baso # (Auto) 0.1 (0.0-0.1) K/mm3 Abs Immat Gran (auto) 0.03 (0.00-0.031) K/mm3 Absolute Neuts (auto) 10.6 H (1.3-6.7) K/mm3 Absolute Nucleated RBC 0.000 (0.0-0.012) K/mm3 Nucleated RBC % 0.0 (0.0-0.2) % PT 13.4 (11.1-14.7) Seconds INR 1.0 APTT 32.2 (22.3-36.8) Seconds Sodium 142 (137-145) mmol/L Potassium 4.2 (3.4-5.0) mmol/L Chloride 98 (98-107) mmol/L Carbon Dioxide 27 (22-30) mmol/L Anion Gap 17 H (4-12) mmol/L BUN 14 (7-17) mg/dL Creatinine 0.63 L (0.7-1.0) mg/dL Estim Creat Clear Calc 64 ml/min Estimated GFR > 60 (59 - ) Glucose 173 H (65-110) mg/dL Calcium 10.3 H (8.4-10.2) mg/dL Total Bilirubin 0.8 (0.2-1.3) mg/dL AST 31 (14-36) U/L ALT 25 (6-35) U/L Alkaline Phosphatase 91 (38-126) U/L Troponin I < 0.012 (0.000-0.034) ng/mL Total Protein 11.0 H (6.3-8.2) g/dL Albumin 5.4 H (3.5-5.1) g/dL Influenza A (RT-PCR) Negative (Negative) Influenza B (RT-PCR) Negative (Negative) RSV (RT-PCR) Negative (Negative) SARS-CoV-2 RNA (RT-PCR) Negative (Negative) Discharge Plan Discharge Clinical Impression: Sinusitis Patient Disposition: Home, Self-Care Condition: Stable Instructions: Antibiotic Form, Sinusitis (ED) Additional Instructions: RETURN IF SYMPTOMS ARE WORSENING , CALL YOUR FAMILY PHYSICIAN FOR APPOINTMENT, TAKE TYLENOL NEEDED FOR ACHES AND PAIN, CONTINUE HOME MEDICATIONS. Patient Language: [place] Prescriptions: New doxycycline hyclate 100 mg capsule 100 mg PO BID Qty: 28 0RF ipratropium bromide 42 mcg (0.06 %) spray,non-aerosol 2 spray intranasal TID 7 Days Qty: 15 0RF Rx Instructions: administer into each nostril prednisone 20 mg tablet 40 mg PO DAILY 5 Days Qty: 10 0RF fluticasone propionate [Flonase Allergy Relief] 50 mcg/actuation spray,suspension 2 spray intranasal DAILY Qty: 16 0RF Rx Instructions: administer into each nostril No Action multivitamin Tablet 1 tablet PO DAILY cholecalciferol (vitamin D3) 25 mcg (1,000 unit) capsule 1,000 unit PO DAILY pantoprazole 40 mg tablet,delayed release (DR/EC) 40 mg PO QAM PRN dorzolamide 2 % drops 1 drp ophthalmic (eye) BID chlorthalidone 25 mg tablet 12.5 mg PO DAILY Qty: 45 1RF potassium chloride 10 mEq tablet extended release 10 meq PO QPM Qty: 90 1RF Trulicity 0.75 mg/0.5 mL pen injector 0.75 mg subcut WEEKLY Qty: 6 2RF albuterol sulfate 1.25 mg/3 mL solution for nebulization 1.25 mg inhalation Q4-6H PRN (Reason: shortness of breath or wheezing) Qty: 90 0RF metaxalone 800 mg tablet 400 mg PO DAILY Qty: 20 0RF diltiazem HCl 180 mg capsule,extended release 24hr 180 mg PO DAILY Qty: 90 1RF olmesartan 20 mg tablet 20 mg PO DAILY Qty: 90 1RF Repatha SureClick 140 mg/mL pen injector See Rx Instructions .ROUTE .COMPLEX Qty: 6 1RF Dose Instruction: INJECT 140MG UNDER THE SKIN ONCE EVERY 2 WEEKS Rx Instructions: INJECT 140MG UNDER THE SKIN ONCE EVERY 2 WEEKS Follow-up/Referrals: Yony Marcelino, [Primary Care Provider] -
--- NOTE | 2024-07-05 13:05 | ED.URI ---
HPI - URI/Sore Throat General Chief Complaint: Upper Respiratory Infection Stated Complaint: sinuses Time Seen by Provider: 07/05/24 12:58 Source: patient and family Mode of arrival: ambulatory Limitations: no limitations History of Present Illness HPI Narrative: 69 YEARS OLD WHITE FEMALE CAME TO THE ED BY PRIVATE CAR COMPLAINING OF FACIAL PAIN MAINLY ON THE LEFT MAXILLARY AREA, TOP OF THE HEADACHE PAIN, STARTED 1 WEEK AGO, PATIENT BEEN HAVING SIMILAR SYMPTOMS OFTEN ON SINCE FEBRUARY 2024. USUALLY GETS SOME ANTIBIOTIC AND GETS BETTER. SHE DENIES ANY FEVER OR CHILLS OR VOMITING OR CHEST PAIN OR SHORTNESS OF BREATH OR FOCAL NEURO DEFICIT. PATIENT IS TELLING ME THAT SHE BEEN HAVING RUNNY NOSE AND NASAL CONGESTION OVER THE LAST 10 DAYS. Related Data Home Medications ?Medication ?Instructions ?Recorded ?Confirmed ?Last Taken ?Type multivitamin 1 tablet PO DAILY 02/09/20 01/23/24 07/12/21 History dorzolamide 2 % eye drops 1 drp ophthalmic (eye) BID 03/22/20 01/23/24 07/12/21 History cholecalciferol (vitamin D3) 25 1,000 unit PO DAILY 08/27/21 01/23/24 Unknown History mcg (1,000 unit) capsule pantoprazole 40 mg tablet,delayed 40 mg PO QAM PRN 12/05/23 01/23/24 Unknown History release Allergies Allergy/AdvReac Type Severity Reaction Status Date / Time SADIE Inhibitors Allergy Unknown COUGHING Verified 01/23/24 09:11 adhesive tape Allergy Unknown Itching/RED Verified 01/23/24 09:11 NESS fluticasone Allergy Unknown Unknown Verified 01/23/24 09:11 latex Allergy Unknown ITCHING/ROQUE Verified 01/23/24 09:11 H Penicillins Allergy Unknown Rash Verified 01/23/24 09:11 perfumes Allergy Intermediate Swelling Uncoded 01/23/24 09:11 Review of Systems Review of Systems: All systems reviewed & are unremarkable except as noted in HPI and below PMFSH Past Medical History Medical History Breast asymmetry in female History of intracranial hemorrhage 2015 Coronary artery disease Mild acid reflux Seasonal allergies Latex allergy High cholesterol Hypertension Vision abnormalities Carpal tunnel syndrome of right wrist Mass of joint of right wrist Fatty liver Osteopenia Heart disease Irritable bowel syndrome Allergies AK (actinic keratosis) Essential (primary) hypertension Gastroesophageal reflux disease Mixed hyperlipidemia Type 2 diabetes mellitus with retinopathy, without long-term current use of insulin Surgical History Surgical History Hx of cholecystectomy H/O: hysterectomy Family History Family History Mother Heart disease Hypertension Diabetes mellitus Father Cancer Other Family history of cardiovascular disease Social History Social History Years smoked: 3 Smoking status: Never smoker Smoking end date: 05/05/73 Alcohol intake: never Alcohol use details: occasional Substance use: never Substance use type: does not use Do You Feel Safe in your Home?: Yes Lack of Transportation: No Lack of Food: Never True Current Housing: I Do Not Have Housing Concerned About Future Housing: No Difficulty Paying Gas/Electric Bills: No Difficulty Paying for Meds: No Currently Unemployed: No Education: High School Diploma/GED Difficulty w/ Childcare or Family Care: No Living arrangements: with family Occupation/Education: retired 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 Gender identity (if verbalized by the patient): Female Spiritual care concerns: No Exam Narrative: GENERAL APPEARANCE: WELL-DEVELOPED, WELL-NOURISHED SKIN: NORMAL COLOR HEAD: NORMOCEPHALIC, NONTRAUMATIC EYES: CLEAR CONJUNCTIVA ENT: OROPHARYNX NORMAL, EARS NORMAL, DIFFUSE TENDERNESS AT THE LEFT MAXILLARY AREA, AND FRONTAL AREA BILATERALLY, NASAL CONGESTION NECK: SUPPLE, NONTENDER CHEST AND RESPIRATORY: AIRWAY PATENT, NO RESPIRATORY DISTRESS, NO ACCESSORY MUSCLE USE HEART: REGULAR RATE/RHYTHM ABDOMEN: SOFT, NONTENDER, NO ORGANOMEGALY, QUIET BOWEL SOUNDS VASCULAR: NORMAL PERIPHERAL PULSES, NORMAL CAPILLARY REFILL. MUSCULOSKELETAL: NORMAL RANGE OF MOTION, NONTENDER BACK NEUROLOGIC: ALERT AND ORIENTED ?3, AFFILIATE MARKETING COORDINATOR IS NORMAL TESTED, NO GROSS MOTOR DEFICIT Course Vital Signs Vital signs: Vital Signs Temperature 36.6 C 07/05/24 10:39 Pulse Rate 89 07/05/24 10:39 Respiratory Rate 18 07/05/24 10:39 Blood Pressure 188/89 H 07/05/24 10:39 Pulse Oximetry 100 07/05/24 10:39 Temperature 36.8 C 07/05/24 12:26 Pulse Rate 99 07/05/24 13:22 Respiratory Rate 12 07/05/24 13:22 Blood Pressure 183/78 H 07/05/24 13:22 Pulse Oximetry 100 07/05/24 13:22 Oxygen Delivery Room Air 07/05/24 12:56 MDM - URI/Sore Throat MDM Narrative Medical decision making narrative: PATIENT PRESENTS WITH FACIAL PAIN AND HEADACHE VITAL SIGNS SHOWING BLOOD PRESSURE 188/89 OTHERWISE WITHIN NORMAL LIMIT PHYSICAL EXAMINATION CONSISTENT WITH TENDERNESS OF THE FACIAL BONE MAINLY ON THE LEFT MAXILLARY AREA AND FRONTAL AREA CONSISTENT WITH SINUSITIS DIFFERENTIAL DIAGNOSIS INCLUDE SINUSITIS, UPPER RESPIRATORY INFECTION, LESS LIKELY INTRACRANIAL ABNORMALITIES BLOOD WORKUP TODAY INCLUDES CBC, CMP SHOWED WBC OF 12.4 CHEST X-RAY SHOWED NO ACUTE ABNORMALITIES CT HEAD SHOWED NO ACUTE ABNORMALITIES EXCEPT SINUSITIS DIAGNOSIS SINUSITIS, DISCHARGED ON AUGMENTIN, FLONASE, ATROVENT NASAL SPRAY. PATIENT IS TELLING ME THAT SHE IS NOT ALLERGIC TO PREDNISONE OR STEROID. THAT WAS INACCURATE Differential Diagnosis Differential diagnosis: Likely other ( ABOVE) Medical Records Attestation: I reviewed the patient's medical records. Lab Data Attestation: I reviewed the patient's lab results. 07/05/24 13:06 07/05/24 13:06 Labs: Lab Results 07/05/24 07/05/24 Range/Units 13:06 13:33 WBC 12.4 H (4.5-10.0) K/mm3 RBC 5.35 (4.2-5.4) M/mm3 Hgb 15.8 H (12.0-15.0) g/dL Hct 47.7 H (37.0-47.0) % MCV 89.2 (80-100) fl MCH 29.5 (26-34) pg MCHC 33.1 (32-36) g/dl RDW 13.4 (11.5-14.5) % Plt Count 269 (150-375) k/mm3 MPV 9.0 (7.4-10.4) fl Immature Gran % (Auto) 0.2 (0-0.5) % Neut % (Auto) 85.7 H (45.5-73.1) % Lymph % (Auto) 8.6 L (18.3-44.2) % [place] % (Auto) 4.8 (2.6-8.5) % Eos % (Auto) 0.2 (0-4.4) % Baso % (Auto) 0.5 (0.2-1.2) % Lymph # (Auto) 1.07 (0.9-3.2) K/mm3 [place] # (Auto) 0.6 (0.1-0.6) K/mm3 Eos # (Auto) 0.0 (0-0.3) K/mm3 Baso # (Auto) 0.1 (0.0-0.1) K/mm3 Abs Immat Gran (auto) 0.03 (0.00-0.031) K/mm3 Absolute Neuts (auto) 10.6 H (1.3-6.7) K/mm3 Absolute Nucleated RBC 0.000 (0.0-0.012) K/mm3 Nucleated RBC % 0.0 (0.0-0.2) % PT 13.4 (11.1-14.7) Seconds INR 1.0 APTT 32.2 (22.3-36.8) Seconds Sodium 142 (137-145) mmol/L Potassium 4.2 (3.4-5.0) mmol/L Chloride 98 (98-107) mmol/L Carbon Dioxide 27 (22-30) mmol/L Anion Gap 17 H (4-12) mmol/L BUN 14 (7-17) mg/dL Creatinine 0.63 L (0.7-1.0) mg/dL Estim Creat Clear Calc 64 ml/min Estimated GFR > 60 (59 - ) Glucose 173 H (65-110) mg/dL Calcium 10.3 H (8.4-10.2) mg/dL Total Bilirubin 0.8 (0.2-1.3) mg/dL AST 31 (14-36) U/L ALT 25 (6-35) U/L Alkaline Phosphatase 91 (38-126) U/L Troponin I < 0.012 (0.000-0.034) ng/mL Total Protein 11.0 H (6.3-8.2) g/dL Albumin 5.4 H (3.5-5.1) g/dL Influenza A (RT-PCR) Pending Influenza B (RT-PCR) Pending RSV (RT-PCR) Pending SARS-CoV-2 RNA (RT-PCR) Pending Imaging Data Radiologist's impression: Impressions Head CT 07/05/24 13:20 IMPRESSION: No acute intracranial findings. Chest X-Ray 07/05/24 13:27 IMPRESSION: 1. No acute cardiopulmonary disease. ECG Data EKG #1: Attestation: I personally reviewed and interpreted this ECG as follows: ECG completion date: 07/05/24 Interpretation: SINUS TACHYCARDIA AT 102 BEATS PER MINUTE, NONSPECIFIC ST T-WAVE ABNORMALITY, POOR R-WAVE PROGRESSION, SEPTAL INFARCTION OF INDETERMINATE AGE, ABNORMAL EKG, NO PREVIOUS EKG AVAILABLE FOR COMPARISON Critical Care Time Critical Care Time Critical Care Time: No Discharge Plan Discharge Clinical Impression: Sinusitis Patient Disposition: Home, Self-Care Condition: Stable Instructions: Antibiotic Form, Sinusitis (ED) Additional Instructions: RETURN IF SYMPTOMS ARE WORSENING , CALL YOUR FAMILY PHYSICIAN FOR APPOINTMENT, TAKE TYLENOL NEEDED FOR ACHES AND PAIN, CONTINUE HOME MEDICATIONS. Patient Language: Macanese Prescriptions: New doxycycline hyclate 100 mg capsule 100 mg PO BID Qty: 28 0RF ipratropium bromide 42 mcg (0.06 %) spray,non-aerosol 2 spray intranasal TID 7 Days Qty: 15 0RF Rx Instructions: administer into each nostril prednisone 20 mg tablet 40 mg PO DAILY 5 Days Qty: 10 0RF fluticasone propionate [Flonase Allergy Relief] 50 mcg/actuation spray,suspension 2 spray intranasal DAILY Qty: 16 0RF Rx Instructions: administer into each nostril No Action multivitamin Tablet 1 tablet PO DAILY cholecalciferol (vitamin D3) 25 mcg (1,000 unit) capsule 1,000 unit PO DAILY pantoprazole 40 mg tablet,delayed release (DR/EC) 40 mg PO QAM PRN dorzolamide 2 % drops 1 drp ophthalmic (eye) BID chlorthalidone 25 mg tablet 12.5 mg PO DAILY Qty: 45 1RF potassium chloride 10 mEq tablet extended release 10 meq PO QPM Qty: 90 1RF Trulicity 0.75 mg/0.5 mL pen injector 0.75 mg subcut WEEKLY Qty: 6 2RF albuterol sulfate 1.25 mg/3 mL solution for nebulization 1.25 mg inhalation Q4-6H PRN (Reason: shortness of breath or wheezing) Qty: 90 0RF metaxalone 800 mg tablet 400 mg PO DAILY Qty: 20 0RF diltiazem HCl 180 mg capsule,extended release 24hr 180 mg PO DAILY Qty: 90 1RF olmesartan 20 mg tablet 20 mg PO DAILY Qty: 90 1RF Repatha SureClick 140 mg/mL pen injector See Rx Instructions .ROUTE .COMPLEX Qty: 6 1RF Dose Instruction: INJECT 140MG UNDER THE SKIN ONCE EVERY 2 WEEKS Rx Instructions: INJECT 140MG UNDER THE SKIN ONCE EVERY 2 WEEKS Follow-up/Referrals: Yony Marcelino, [Primary Care Provider] -
[2024-07-05 13:12] LABS: Basophils Absolute Auto 0.1 K/mm3 (0.0-0.1); Basophils Percent Auto 0.5 % (0.2-1.2); Eosinophils Percent Auto 0.2 % (0-4.4); Hematocrit 47.7 % (37.0-47.0); Hemoglobin 15.8 g/dL (12.0-15.0); Immature Granulocyte Absolute 0.03 K/mm3 (0.00-0.031); Immature Granulocyte Percent A 0.2 % (0-0.5); Lymphocytes Absolute Auto 1.07 K/mm3 (0.9-3.2); Lymphocytes Percent Auto 8.6 % (18.3-44.2); Mean Corpuscular HGB Conc 33.1 g/dl (32-36); Mean Corpuscular Hemoglobin 29.5 pg (26-34); Mean Corpuscular Volume 89.2 fl (80-100); Monocytes Absolute Auto 0.6 K/mm3 (0.1-0.6); Monocytes Percent Auto 4.8 % (2.6-8.5); Neutrophils Absolute Auto 10.6 K/mm3 (1.3-6.7); Neutrophils Percent Auto 85.7 % (45.5-73.1); Platelet Count Result 269 k/mm3 (150-375); Red Blood Count 5.35 M/mm3 (4.2-5.4); Red Cell Distribution Width 13.4 % (11.5-14.5); White Blood Count 12.4 K/mm3 (4.5-10.0)
[2024-07-05 13:22] LABS: Alanine Aminotransferase 25 U/L (6-35); Albumin Level 5.4 g/dL (3.5-5.1); Alkaline Phosphatase 91 U/L (38-126); Anion Gap 17 mmol/L (4-12); Aspartate Amino Transferase 31 U/L (14-36); Bilirubin,Total 0.8 mg/dL (0.2-1.3); Blood Urea Nitrogen 14 mg/dL (7-17); Calcium 10.3 mg/dL (8.4-10.2); Carbon Dioxide 27 mmol/L (22-30); Chloride 98 mmol/L (98-107); Estimated CRCL calculation 64 ml/min; Estimated Glomerular Filt Rate > 60; Glucose 173 mg/dL (65-110); Potassium 4.2 mmol/L (3.4-5.0); Sodium 142 mmol/L (137-145)
[2024-07-05 13:24] LABS: Prothrombin Time 13.4 Seconds (11.1-14.7)
[2024-07-05 13:25] LABS: Partial Thromboplastin Time 32.2 Seconds (22.3-36.8)
[2024-07-05 13:34] LABS: Troponin I < 0.012 ng/mL (0.000-0.034)
[2024-07-05] MEDS: MORPHINE SULFATE (*CRX) 4 MG/ML INJ IV PUSH (13:47)
[2024-07-05] MEDS: KETOROLAC 15 MG/ML VIAL (*BKC) IV PUSH (13:47)
[2024-07-05] MEDS: ONDANSETRON INJ 4 MG/2 ML VIAL IV PUSH (13:47)
[2024-07-05 14:18] LABS: Influenza A QL RT-PCR Negative (Negative); Influenza B QL RT-PCR Negative (Negative); RSV RNA, RT-PCR Negative (Negative); SARS-CoV-2 RNA PCR Negative (Negative)
== END 2024-07-05 15:12 | disposition home or self-care (01) ==
PROVIDERS: Registered Nurse; Emergency Provider Emergency Medicine; PCP Internal Medicine
DX: J32.9 Chronic sinusitis, unspecified (principal); Z20.822 Contact with and (suspected) exposure to COVID-19; I25.10 Atherosclerotic heart disease of native coronary artery without angina pectoris; I11.9 Hypertensive heart disease without heart failure; E78.2 Mixed hyperlipidemia; E11.319 Type 2 diabetes mellitus with unspecified diabetic retinopathy without macular edema; K58.9 Irritable bowel syndrome, unspecified; K21.9 Gastro-esophageal reflux disease without esophagitis; M85.80 Other specified disorders of bone density and structure, unspecified site; Z87.891 Personal history of nicotine dependence; Z90.49 Acquired absence of other specified parts of digestive tract; Z90.710 Acquired absence of both cervix and uterus; Z79.85 Long-term (current) use of injectable non-insulin antidiabetic drugs; Z79.899 Other long term (current) drug therapy; R00.0 Tachycardia, unspecified; R94.31 Abnormal electrocardiogram [ECG] [EKG]
CPT/HCPCS: 36415; 70450; 71045; 80053; 84484; 85025; 85610; 85730; 87637; 93005; 96374; 96375; 99284; J1885; J2270; J2405

== ENCOUNTER 2024-08-19 10:46 | Outpatient (CLI) | payer MEDICARE, SELFPAY ==
--- NOTE | ~2024-08-19 | CT_ITS ---
EXAMINATION: CT sinus wo con DATE: 08/19/2024 11:14 INDICATION: Chronic pansinusitis TECHNIQUE: Computed tomography (CT) of the paranasal sinuses was performed without intravenous contra st. The dose-length product was 29.55 mGy-cm. Automated exposure control and iterative reconstruction technique were employed. COMPARISON: CT dated 07/05/2024 FINDINGS: There is complete opacification of left maxillary sinus. There is mucosal thickening of the left ethmoid sinuses. Mastoids are pneumatized. There is mucosal thickening of the left frontal sinu s. Leftward nasal septal deviation. Right ostiomeatal unit is patent. Left ostiomeatal unit is occlud ed. Mastoids are pneumatized. IMPRESSION: 1. Moderate-severe sinusitis of the left maxillary, ethmoid and frontal sinuses with occlusion left o stiomeatal unit. Reviewed, dictated and finalized at location B. IMPRESSION: 1. Moderate-severe sinusitis of the left maxillary, ethmoid and frontal sinuses with occlusion left ostiomeatal unit.
--- OUTSIDE RECORDS SUMMARY | 2024-08-19 11:42 | XMS_ITS | Clinical Summary ---
Author Organization [facility] Address [address] [place] [address] Care Team Providers Care Center Director Lead Teacher Name Role Phone Yony Marcelino DO Primary Care Provider [phone]- [phone] Allergies Active Allergy Reactions Criticality Noted Date Comments Aspirin Other (See comments) Low 08/27/2021 Subdural hematoma Codeine Latex Penicillins Iipguqu-[id number]-Fbv Reductase Inhibitors Nausea only Medium 05/01/2021 Medications olmesartan (BENICAR) 20 mg tablet Take 1 tablet (20 mg total) by mouth daily Active dilTIAZem CD 180 mg 24 hr capsule 03/13/2021 Active chlorthalidone 25 mg tablet Take by mouth 07/17/2017 Active Trulicity 0.75 mg/0.5 mL pen injector 04/19/2021 Active potassium chloride ER 10 mEq CR tablet 03/07/2021 Activ e dorzolamide (TRUSOPT) 2 % ophthalmic solution 02/15/2021 Active metaxalone (SKELAXIN) 800 mg tablet Take 0.5 tablets (400 mg total) by mouth as needed 07/10/[address] (PROTONIX) 40 mg EC tablet Take by mouth as needed 06/26/2017 Active Repatha SureClick 140 mg/mL pen injector INJECT 140MG UNDER THE SKIN ONCE EVERY 2 WEEKS 08/08/2023 Active multivitamin tabletIndicatio ns:Vitamin Deficiency Prevention Take 1 tablet by mouth Active metoprolol XL (TOPROL-XL) 50 mg extended release tabletIndicatio ns:Palpitations Take 1 tablet (50 mg total) by mouth daily 30 tablet 11 04/22/2024 Active Active Problems Problem Noted Date Diagnosed Date Palpitations 04/08/2024 Diabetes mellitus 06/28/2022 Statin myopathy 11/07/2021 Coronary artery disease invo [place]ving [place] coronary artery of [place] heart without angina pectoris 05/01/2021 Mixed diabetic hyperlipidemi a associated with type 2 diabetes mellitus 05/01/2021 Hypertension associated with diabetes 05/01/2021 Other nontraumatic intracerebral hemorrhage 04/05 Aspirin intolerance 05/01/2021 Statin intolerance 05/01/2021 History of subdural hematoma 05/01/2021 Hypertensive heart disease without heart failure 01/22/2012 Benign hypertensive heart di sease without congestive heart failure 01/22/2012 Resolved Problems Problem Noted Date Diagnosed Date Resolved Date Subdural hematoma 12/02/2014 05/13/2022 Hypercholesterolemia 07/10/2012 023 Encounters Date Type Department Care Team Description 08/19/2024 ACO Clinical Pharmacist [facility] Care Organization [address] [place] [id number] Mandy Wright [facility] 05/30/2024 7:15 PM PRINCIPAL EMBEDDED SOFTWARE ENGINEER Office Visit [facility] at [address] [address] Soraida Langford PA Acute non-recurrent pansinusitis (Primary Dx) from Last 3 Months Surgical History Surgery Date Site/Laterality Comments IN CHOLECYSTECTOMY Cholecystectomy - (Added by TW Conv) Medical History Medical History Date Comments Personal history of other di seases of the circulatory system History of hypertension - (A dded by TW Conv) Personal history of other sp ecified conditions History of chest pain - (Add ed by TW Conv) Personal history of other en docrine, nutritional and metabolic disease History of hyperchol esterolemia - (Added by TW Conv) Personal history of other en docrine, nutritional and metabolic disease History of diabetes mellitus - (Added by TW Conv) Hypertension Family History Medical History Relation Name Comments Diabetes Mother Heart disease Mother Heart disease Other 1 Family history of cardiac disorder - (Added by TW Conv) Hypertension Other 2 Family history of hypertension - (Added by TW Conv) Relation Name Status Comments Father Unsure Mother (Age 86) Other 1 Other 2 Social History Tobacco Use Types Packs/Day Years Used Date Smoking Tobacco: Former Tobacco Cessation:Counseling Given: Not Answered Comments Unknown Sex and Gender Information Value Date Recorded Sex Assigned at Not on file Legal Sex Female 9:45 AM PRINCIPAL EMBEDDED SOFTWARE ENGINEER Gender Identity Not on file Sexual Orientation Not on file Obstetrics History Last Filed Vital Signs Vital Sign Reading Time Taken Comments Blood Pressure 162/82 05/30/2024 7:12 PM PRINCIPAL EMBEDDED SOFTWARE ENGINEER Pulse 80 05/30/2024 7:12 PM PRINCIPAL EMBEDDED SOFTWARE ENGINEER Temperature 36.8 C (98.2 F) 05/30/2024 7:12 PM PRINCIPAL EMBEDDED SOFTWARE ENGINEER Respiratory Rate 12 05/30/2024 7:12 PM PRINCIPAL EMBEDDED SOFTWARE ENGINEER Oxygen Saturation 97% 05/30/2024 7:12 PM PRINCIPAL EMBEDDED SOFTWARE ENGINEER Inhaled Oxygen Concentration - - Weight 67.1 kg (148 lb) 05/30/2024 7:12 PM PRINCIPAL EMBEDDED SOFTWARE ENGINEER Height 165.1 cm (5' 5 ) 05/30/2024 7:12 PM PRINCIPAL EMBEDDED SOFTWARE ENGINEER Body Mass Index 24.63 05/30/2024 7:12 PM PRINCIPAL EMBEDDED SOFTWARE ENGINEER Plan of Treatment Health Maintenance Due Date Last Done Comments Albumin Creatinine Ratio, Urine 1954 Breast Cancer Screening-Mammogram 1954 Colon Cancer Screening-Colonoscopy 1954 Depression Screening 1954 Fall Risk Assessment 1954 Hemoglobin A1C 1954 Hepatitis C Screening 1954 Osteoporosis Screening-Bone Density Scan 1954 eGFR 1954 Dilated Eye Exam 1954 Foot Exam 1954 DTaP/Tdap/Td Vaccine (1 - Tdap) 1965 Hepatitis B Screening 1972 Zoster Vaccine (1 of 2) 2004 Well Visit 65+ 2019 Pneumococcal vaccine 65+ (2 of 2 - PCV) 02/20/2022 02/20/2021 Lipid Panel 05/13/2023 05/13/2022, 04/05, 11/28/2014 Covid-19 Vaccine ( - season) 2024 02/12/2021, 07/21/2020, 06/30/2020 Influenza Vaccine (Season Ended) 2025 02/21/20 21 Procedures Procedure Name Priority Date/Time Associated Diagnosis Comments POCT LIPID PANEL Routine 05/13/2022 3:07 PM PRINCIPAL EMBEDDED SOFTWARE ENGINEER Coronary artery disease involving [place] coronary artery of [place] heart without angina pectoris from Last 3 Months or Most Recently Relevant to Health Maintenance Results * POCT lipid panel (05/13/2022 3:07 PM PRINCIPAL EMBEDDED SOFTWARE ENGINEER) Cholesterol, POC 266 mg/dL Comment:GLU = 104 HDL, POC 38 mg/dL Triglycerides, POC 351 mg/dL LDL Cholesterol POC 157 mg/dL Chol/HDL Ratio, POC 4.1 Non-HDL Cholesterol, POC 227 mg/dL Cholesterol Total, POC 266 mg/dL Capillary blood 05/13/2022 3 :07 PM PRINCIPAL EMBEDDED SOFTWARE ENGINEER Angelo Fang MD POINT OF CARE TEST ORDER NILES Final Result from Last 3 Months or Most Recently Relevant to Health Maintenance Insurance [facility] [place]IC[place] [address] [id number] MEDICARE MEDICARE MEDICARE Care Teams Center Director Lead Teacher Relationship Specialty Start Date End Date Yony Marcelino DO PCP - General Internal Medicine 05/01/21
--- OUTSIDE RECORDS SUMMARY | 2024-08-19 11:42 | XMS_ITS | Encounter Summary ---
Author Organization [employer] [facility] Address [address] [place] [address] Care Team Providers Care Conduit Reamer Operator Name Role Phone Paul Garg MD Primary Care Provider + Encounter Details Date Type Department Care Team (Latest Contact Info) Description 03/16/2007 Outpatient Historical HIS CARD ELECTRIC MOTOR ASSEMBLER AND TESTER Jett Merchant MD [address] [address] Coronary Atherosclerosis of [place] Coronary Artery (Primary Dx); Other Nonspecific Abnormal Cardiovascular System Function Study; Unspecified Essential Hypertension; DM w/o Complication Type II (CMS/HCC); Other and Unspecified Hyperlipidemia; Encounter for Long-Term (Current) Use of Aspirin; Personal History of Tobacco Use, Presenting Hazards to Health Social History Tobacco Use Types Packs/Day Years Used Date Smoking Tobacco: Never Assessed Comments Unknown Sex and Gender Information Value Date Recorded Sex Assigned at Not on file Legal Sex Female 5:30 AM LOGGING CREW FOREMAN Gender Identity Not on file Sexual Orientation Not on file documented as of this encounter Plan of Treatment Not on file documented as of this encounter Procedures Procedure Name Priority Date/Time Associated Diagnosis Comments POC GLUCOSE Routine 03/16/2007 8:49 AM LOGGING CREW FOREMAN documented in this encounter Results * (ABNORMAL) POC GLUCOSE (03/16/2007 8:49 AM LOGGING CREW FOREMAN) GLUCOSE POC 135(H) 65 - 99 mg/dL INTERFACE SYSTEM 03/16/2007 8:49 AM LOGGING CREW FOREMAN us Jett Oconnell MD POINT OF CARE TESTING Shine abdoulaye INTERFACE SYSTEM Refer to clinic/hospital department documented in this encounter Visit Diagnoses Diagnosis Coronary atherosclerosis of [place] coronary artery- Primary Other nonspecific abnormal cardiovascular system function study Unspecified essential hypertension Type II or unspecified type diabetes mellitus without mention of complication, not stated as uncontrolled Other and unspecified hyperlipidemia Encounter for long-term (current) use of aspirin Personal history of tobacco use, presenting hazards to health documented in this encounter Care Teams Conduit Reamer Operator Relationship Specialty Start Date End Date Paul Garg MD [address] [place] [id number] PCP - General 03/16/07 documented as of this encounter
--- OUTSIDE RECORDS SUMMARY | 2024-08-19 11:42 | XMS_ITS | Clinical Summary ---
Author Organization [employer] [facility] Address [address] [facility] Attn: Epic Prelude ADT [place] [address] Care Team Providers Care Statistical Developer Name Role Phone Paul Garg MD Primary Care Provider + Social History Tobacco Use Types Packs/Day Years Used Date Smoking Tobacco: Never Assessed Comments Unknown Sex and Gender Information Value Date Recorded Sex Assigned at Not on file Legal Sex Female 5:30 AM WIRE INSERTER Gender Identity Not on file Sexual Orientation Not on file Plan of Treatment Health Maintenance Due Date Last Done Comments DTAP/TDAP/TD VACCINES (1 - Tdap) 1973 BREAST CANCER SCREENING 1994 COLORECTAL SCREENING 1999 Colorectal Cancer Screening 1999 FIT-DNA Q 3 years 1999 FIT/FOBT Q 1 year 1999 Flex Sig/CT Colonography Q 5 years 1999 PNEUMOCOCCAL VACCINE 50+ YEARS (1 of 1 - PCV) 05/29/19 05 ZOSTER VACCINE (1 of 2) 2004 OSTEOPOROSIS SCREENING 2019 INFLUENZA VACCINE (#1) 2023 RSV VACCINE (60+ or ) (1 - 1-dose 75+ series) 2029 Care Teams Statistical Developer Relationship Specialty Start Date End Date Paul Garg MD [address] [place] [id number] PCP - General 03/16/07
--- OUTSIDE RECORDS SUMMARY | 2024-08-19 11:42 | XMS_ITS | Encounter Summary ---
Author Organization [facility] Healthcare Address [address] [place] [address] Care Team Providers Care Fireman Name Role Phone Yony Marcelino DO Primary Care Provider +1- [phone] Reason for Visit * Reason Comments ACO Quality [employer] Statin Gap in Care Chart Review Documented allergy/i ntolerance to statin therapy not accepted exclusion. Unable to close statin gap. Encounter Details Date Type Department Care Team (Late st Contact Info) Description 08/19/2024 ACO Clinical Pharmacist [facility] Accountable Care Organization [address] [place] [id number] Mandy Wright RPh [address] [place] [address] [facility] [address] [place] [address] Social History Tobacco Use Types Packs/Day Years Used Date Smoking Tobacco: Former Comments Unknown Sex and Gender Information Value Date Recorded Sex Assigned at Not on file Legal Sex Female 9:45 AM SURGICAL SCRUB TECHNICIAN Gender Identity Not on file Sexual Orientation Not on file documented as of this encounter Miscellaneous Notes * Telephone Encounter - Mandy Wright RPh - 08/19/2024 10:50 AM CDT ACO Statin Gap Note Patient is on payor report for not meeting the following Medicare Stars measures: Persons with diabetes on statin therapy (SUPD) Persons with ASCVD on moderate- or high-intensity statin (SPC) Per chart review, likely populating on this report because: There is recent documentation that the patient has a documented allergy or intolerance to this therapy (nausea). [facility] does not accept this as an exclusionary diagnosis for this care measure. Patient does not follow with [facility] primary care provider. Did re-establish with cardiology provider but fasting lipid panel not ordered. Statin gap unable to close due to patient allergy. Mandy Wright RPh FYI - Objective/Lab Data: Lab Results Component Value Date LDL 101 11/28/2014 POCLDL 157 05/13/2022 POCLDL 177 05/01/2021 Lab Results Component Value Date ALT 21 11/28/2014 AST 26 11/28/2014 ALKPHOS 57 11/28/2014 BILITOT 0.4 11/28/2014 The ASCVD Risk score (Arsen DK, et al., 2019) failed to calculate for the following reasons: Cannot find a previous HDL lab 10-year risk for ASCVD is categorized as: Low-risk (<5%) Borderline risk (5% to 7.4%) Intermediate risk (7.5% to 19.9%) High risk (>=20%) documented in this encounter Plan of Treatment Not on file documented as of this encounter Visit Diagnoses Not on filedocumented in this encounter Care Teams Fireman Relationship Specialty Start Date End Date Yony Marcelino DO PCP - General Internal Medicine 05/01/21 documented as of this encounter
--- OUTSIDE RECORDS SUMMARY | 2024-08-19 11:42 | XMS_ITS | Referral Summary ---
Author Organization [facility] Address [address] [place] [address] Care Team Providers Care Scheduling Agent Name Role Phone Yony Marcelino DO Primary Care Provider [phone] Encounters Date Type Department Care Team Description 08/19/2024 ACO Clinical Pharmacist [facility] Accountable Care Organization [address] [place] [id number] Mandy Wright corrine 05/30/2024 7:15 PM FOLDER STITCHER OPERATOR Office Visit [facility] at [address] [address] Soraida Langford PA Acute non-recurrent pansinusitis (Primary Dx) from Last 3 Months Allergies Active Allergy Reactions Criticality Noted Date Comments Aspirin Other (See comments) Low 08/27/2021 Subdural hematoma Codeine Latex Penicillins Bufbbem-Hvn-Gbd Reductase Inhibitors Nausea only Medium 05/01/2021 Medications [...] myopathy 11/07/2021 Coronary artery disease invo lving [place] coronary artery of [place] heart without angina pectoris 05/01/2021 Mixed diabetic [...] Subdural hematoma 12/02/2014 05/13/2022 Hypercholesterolemia 07/10/2012 023 Social History Tobacco Use Types Packs/Day Years Used Date Smoking Tobacco: Former Tobacco Cessation:Counseling Given: Not Answered Comments Unknown Sex and Gender Information Value Date Recorded Sex Assigned at Not on file Legal Sex Female 9:45 AM FOLDER STITCHER OPERATOR Gender Identity Not on file Sexual Orientation Not on file Last Filed Vital Signs Vital Sign Reading Time Taken Comments Blood Pressure 162/82 05/30/2024 7:12 PM FOLDER STITCHER OPERATOR Pulse 80 05/30/2024 7:12 PM FOLDER STITCHER OPERATOR Temperature 36.8 C (98.2 F) 05/30/2024 7:12 PM FOLDER STITCHER OPERATOR Respiratory Rate 12 05/30/2024 7:12 PM FOLDER STITCHER OPERATOR Oxygen Saturation 97% 05/30/2024 7:12 PM FOLDER STITCHER OPERATOR Inhaled Oxygen Concentration - - Weight 67.1 kg (148 lb) 05/30/2024 7:12 PM FOLDER STITCHER OPERATOR Height 165.1 cm (5' 5 ) 05/30/2024 7:12 PM FOLDER STITCHER OPERATOR Body Mass Index 24.63 05/30/2024 7:12 PM FOLDER STITCHER OPERATOR Plan of Treatment Not on file Procedures Procedure Name Priority Date/Time Associated Diagnosis Comments POCT LIPID PANEL Routine 05/13/2022 3:07 PM FOLDER STITCHER OPERATOR Coronary artery disease involving [place] coronary artery of [place] heart without angina pectoris from Last 3 Months or Most Recently Relevant to Health Maintenance Results * POCT lipid panel (05/13/2022 3:07 PM FOLDER STITCHER OPERATOR) Cholesterol, POC 266 mg/dL Comment:GLU = 104 HDL, POC 38 mg/dL Triglycerides, POC 351 mg/dL LDL Cholesterol POC 157 mg/dL Chol/HDL Ratio, POC 4.1 Non-HDL Cholesterol, POC 227 mg/dL Cholesterol Total, POC 266 mg/dL Capillary blood 05/13/2022 3 :07 PM FOLDER STITCHER OPERATOR Angelo Fang MD POINT OF CARE TEST ORDER NILES Final Result from Last 3 Months or Most Recently Relevant to Health Maintenance Insurance T MEDICARE T MEDICARE T MEDICARE Care Teams Scheduling Agent Relationship Specialty Start Date End Date Yony Marcelino DO PCP - General Internal Medicine 05/01/21
--- OUTSIDE RECORDS SUMMARY | 2024-08-19 11:42 | XMS_ITS | CONTINUITY OF CARE DOCUMENT ---
Author Name deon, deon Address Unknown Organization [facility] Address [address] [place] [address] Phone [phone] Care Team Providers Care Java Sybase Developer Name Role Phone Daniel Chowdhury MD Unavailable ILYA CHRISTIANSON MD Unavailable [phone] ILYA CHRISTIANSON MD Unavailable [phone] PROBLEMS Condition Status Date Provider Notes CAD-NUC NEG 2012. active Daniel Chowdhury MD SHORTNESS OF BREATH active Katelyn Berkowitz Hypercholesterolemia active Kaity gaviriaer DIABETES MELLITUS active ? Katelyn Johnson MD HTN ESSENTIAL active ? 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 01/21 Katelyn Johnson MD ENCOUNTERS Date Type Provider Location Encounter Diag nosis - In-person encounter Office Visit Daniel Chowdhury MD [place] [facility] - In-person encounter Office Visit Daniel Chowdhury MD [place] [facility] - In-person encounter Office Visit Daniel Chowdhury MD [place] [facility] - In-person encounter Office Visit Daniel Chowdhury MD [place] [facility] - In-person encounter Office Visit Daniel Chowdhury MD [place] [facility] - In-person encounter Office Visit Daniel Chowdhury MD [place] [facility] - In-person encounter Office Visit Daniel Chowdhury MD [place] [facility] - In-person encounter Office Visit Daniel Chowdhury MD [place] [facility] CAD-NUC NEG 2013. - In-person encounter Office Visit Daniel Chowdhury MD [place] [facility] HypercholesterolemiaCAD-NUC NEG 2013. - In-person encounter Office Visit Katelyn Johnson MD [place] [facility] SANTIAGO HTN HEART DISEASE WITHOUT HEART FAILHTN ESSENTIALDIABETES MELLITUSHypercholesterolemiaSHORTNESS OF BREATH VITAL SIGNS Date Observation Value Provider Body Mass Index (Ratio) 26.06 kg/m2 Brian Chowdhury MD blood pressure, cuff size regular Ke rri Stu blood pressure, diastolic 90 mm[Hg] Ke rri Stu blood pressure, systolic 160 mm[Hg] Real Peraza oxygen saturation, oximetry 97 % Kaity Peraza respiratory rate E&M 20 /min Kaity oleary pulse rate 75 /min Kaity Hurtado [facility] weight E&M 160 [lb_av] Kaity Hurtado [facility] height E&M 65.7 [in_i] Kaity Hurtado [facility] Body Mass Index (Ratio) 24.64 kg/m2 Danielito ry Margarita [employer]GER [employer] blood pressure, cuff size regular Sh erry Walls [employer]GER [employer] blood pressure, diastolic 68 mm[Hg] Sh erry Walls [employer]GER [employer] blood pressure, systolic 132 mm[Hg] She rry Margarita [employer] weight E&M 151.3 [lb_av] Tammy Margarita [employer] blood pressure, diastolic 82 mm[Hg] Sh erry Walls [employer]NAGER [employer] blood pressure, systolic 136 mm[Hg] She rry Margarita [employer]GER [employer] pulse rate 72 /min Tammy Walls [employer]GER [employer] Body Mass Index (Ratio) 26.64 kg/m2 Brian Chowdhury MD blood pressure, diastolic 71 mm[Hg] Ernie Laura blood pressure, systolic 177 mm[Hg] Kiana Laura oxygen saturation, oximetry 98 % Rafiq Laura respiratory rate E&M 18 /min Keeley Laura pulse rate 80 /min Rafiq jason weight E&M 163.6 [lb_av] Rafiq poonon height E&M 65.7 [in_i] Rafiq schultzon blood pressure, diastolic 70 mm[Hg] Be tsy South blood pressure, systolic 132 mm[Hg] Bet sy South Body Mass Index (Ratio) 26.71 kg/m2 Brian Chowdhury MD blood pressure, diastolic 78 mm[Hg] [facility], [facility] 140 mm[Hg] Heydi cota Rosario oxygen saturation, oximetry 97 % [facility] E&[facility] 16 /min [place] Rosario pulse rate 70 /min Nishant Rosario weight E&M 164 [lb_av] Nishant Rosario height E&M 65.7 [in_i] Nishant Rosario Body Mass Index (Ratio) 26.06 kg/m2 Brian Chowdhury MD blood pressure, cuff size regular Ke rri Stu blood pressure, diastolic 74 mm[Hg] Ke rri Stu blood pressure, systolic 143 mm[Hg] Real [place] oxygen saturation, oximetry 97 % Kaity [place] respiratory rate E&M 16 /min Kaity oleary pulse rate 70 /min Kaity Hurtado [facility] weight E&M 160 [lb_av] Kaity Hurtado [facility] height E&M 65.7 [in_i] Kaity Genesis [facility] Body Mass Index (Ratio) 24.76 kg/m2 Anea lydia [facility] blood pressure, diastolic 75 mm[Hg] An eatris [facility] blood pressure, systolic 138 mm[Hg] Ane atris Brown pulse rate 65 /min Aneatris Brown oxygen saturation, oximetry 97 % Aneatris Brown respiratory rate E&M 17 /min Aneatri s [facility] weight E&M 152 [lb_av] Aneatris Brown blood pressure, diastolic 77 mm[Hg] Jack Mcclain RN blood pressure, systolic 159 mm[Hg] Rigo Mcclain RN pulse rate 70 /min Rigo Mcclain RN oxygen saturation, oximetry 97 % Rigo Hurdjia REYES respiratory rate E&M 16 /min Rigo Mj piedra RN Body Mass Index (Ratio) 26.65 kg/m2 Rigo Hurdjia REYES weight E&M 163 [lb_av] Rigo Hurdjia REYES Body Mass Index (Ratio) 26.35 kg/m2 Juan barclay [place] blood pressure, diastolic 90 mm[Hg] Jyoti negron [place] blood pressure, systolic 174 mm[Hg] Jacky bonilla [place] pulse rate 90 /min Mohan [place] oxygen saturation, oximetry 98 % Mohan [place] respiratory rate E&M 16 /min Mohan [place] weight E&M 161.2 [lb_av] Mohan [place] height E&M 65.7 [in_i] Mohan [place] Body Mass Index (Ratio) 25.72 kg/m2 Rai i Stu blood pressure, diastolic 80 mm[Hg] Ke rri Stu blood pressure, systolic 150 mm[Hg] Real Tariqroxiekvngdaniel pulse rate 68 /min Kaity Carlottatisha everetteer oxygen saturation, oximetry 97 % Kaity Tariqelisesamueldaniel respiratory rate E&M 16 /min Kaity Maza alvaradorubengal weight E&M 154 [lb_av] Kaiyt Genesis gaviriaer height E&M 65 [in_i] Kaity Tariqdarvin marshall ALLERGIES Allergy Name Onset Date Reaction Criticality Status CODEINE sick to stomach Low Criticality acti ve HISTORY OF MEDICATION USE Medication Status Instructions Dates Provider Indications Com ments LISINOPRIL 5 MG ORAL TABLET active ONE TAB. DAILY 12/03 Kaity Peraza VALSARTAN 320 MG ORAL TABLET completed one tab by mouth once daily 07/17 - 12/03 Liliana Vega RN CHLORTHALIDONE 25 MG ORAL TABLET active ONE TAB. DAILY 07/17 Daniel Chowdhury MD LOSARTAN POTASSIUM 100 MG ORAL TABLET completed Take one tablet daily 07/17 - 07/17 Daniel Chowdhury MD METFORMIN HCL 500 MG ORAL TABLET active take one pill twice a day 06/26 Kaity Peraza AMLODIPINE BESYLATE 2.5 MG ORAL TABLET completed 1 tab daily 06/26 - 07/17 Daniel Chowdhury MD PANTOPRAZOLE SODIUM 40 MG ORAL TABLET DELAYED RELEASE active 1 tab daily as needed 06/26 Kaity Peraza TRAVATAN Z 0.004 % OPHTHALMIC SOLUTION active one drop each eye daily 06/27 Kaity Peraza ZETIA 10 MG ORAL TABLET active take one pill a day 06/27 Kaity Peraza JANUVIA 100 MG ORAL TABLET active take one pill a day 06/27 Kaity Peraza HYDROCHLOROTHIAZIDE 12.5 MG ORAL TABLET completed 1 TAB WHEN NEEDED - Kaity Peraza LOSARTAN POTASSIUM-HCTZ 100-12.5 MG ORAL TABLET completed daily - 07/17 Daniel Chowdhury MD VENTOLIN HFA 108 (90 Base) MCG/ACT INHALATION AEROSOL SOLUTION completed 2 puffs by mouth as needed 07/10 - Kaity Peraza HYDROCHLOROTHIAZIDE 12.5 MG ORAL TABLET completed 1 tablet by mouth daily 07/10 - 01/22 Rigo Mcclain RN LOSARTAN POTASSIUM 50 MG ORAL TABLET completed 1 tablet by mouth daily 07/10 - 01/22 Rigo Mcclain RN ASPIRIN 81 MG ORAL TABLET completed 1 tablet by mouth daily 07/10 - Kaity Peraza METAXALONE 800 MG ORAL TABLET active 1/2-1 tablet by mouth daily 07/10 Daniel Chowdhury MD METFORMIN HCL 500 MG ORAL TABLET completed 1 tablet by mouth twice daily 07/10 - Kaity Peraza MULTIVITAMINS ORAL CAPSULE active take one pill a day 01/21 Katiy Peraza CALCIUM 600-D TABLET completed take one pi ll aday 01/21 - 07/10 Mohan Manelina CRESTOR 20 MG ORAL TABLET completed 1 tablet by mouth daily 07/10 - Kaity Peraza AVALIDE 300-12.5 MG ORAL TABLET completed take one pill a day 01/21 - 07/10 Mohan Andrew CARDIZEM CD 180 MG ORAL CAPSULE EXTENDED RELEASE 24 HOUR active take one pill a day 01/21 Daniel Chowdhury MD SOCIAL HISTORY Date Observation Value Provider social history E&M Marital Statu s: E thnicity: Aleksandr jacobson is a former smoker. Smoking History: Aleksandr jacobson is a former smoker. Daniel Chowdhury MD social history reviewed E&M revi ewed - no changes required Daniel Chowdhury MD physical exercise, f requency, days per week yes Kaity Peraza alcohol use, average drinks per day 0 /d Kaity Peraza alcohol use, type wine- seldom Kaity Wheeler hansel alcohol use yes Kaity Hurtado lder caffeine use, averag e drinks per day 2 /d Kaity Laguerrearinaer drug use no Kaity Hurtado lder passive cigarette sm kevin exposure no Kaity Laguerrearinakirsten smoking status Former smoker Kaity calderoneldkirsten smoking status Former smoker Tammy Wilfredo ll [employer]NAGER [employer] smoking status Former smoker Tammy Wilfredo ll [employer]NAGER [employer] social history E&M Marital Statu s: E thnicity: Aleksandr jacobson is a former smoker. Smoking History: Aleksandr jacobson is a former smoker. Daniel Chowdhury MD social history reviewed E&M revi ewed - no changes required Daniel Chowdhury MD physical exercise, f requency, days per week yes Rafiq Laura alcohol use, average drinks per day 0 /d Rafiq Laura alcohol use, type wine- seldom Rafiq Laura alcohol use yes Rafiq Cruz casie caffeine use, averag e drinks per day 2 /d Rafiq Laura drug use no Rafiq Cruz marioncurt passive cigarette sm kevin exposure no Rafiq Laura smoking status Former smoker Rafiq Yap smoking status Former smoker Sarahy Ramirezangelita berkowitz social history reviewed E&M revi ewed - no changes required Tammy Avila [employer]NAGER [employer] physical exercise, f requency, days per week yes Nishant Rosario alcohol use, average drinks per day 0 /d [place] Rosario alcohol use, type wine- seldom Nishant In gram alcohol use yes Nishant Rosario caffeine use, averag e drinks per day 2 /d Nishant Rosario drug use no Nishant Rosario passive cigarette sm kevin exposure no Nishant Rosario smoking status Former smoker Nishant Arevalo am number of grandchildren Daniel Chowdhury MD U dee Chowdhury MD social history reviewed E&M revi ewed - no changes required Daniel Chowdhury MD physical exercise, f requency, days per week yes Kaity Peraza alcohol use, average drinks per day 0 /d Kaity Stu alcohol use, type wine- seldom Kaity Liam hamm alcohol use yes Kaity Genesis marshall caffeine use, averag e drinks per day 2 /d Kaity Stu drug use no Kaity Genesis marshall passive cigarette sm kevin exposure no Kaity Stu smoking status Former smoker Kaity Tariqroxie santo smoking/tobacco cess ation, patient education and counseling yes Daniel Chowdhury MD social history E&M Marital Statu s: E thnicity: Aleksandr jacobson is a former smoker. Smoking History: Aleksandr jacobson is a former smoker. Daniel Chowdhury MD social history reviewed E&M revi ewed - no changes required Daniel Chowdhury MD physical exercise, f requency, days per week yes Daniel Chowdhury MD alcohol use, average drinks per day 0 /d Daniel Chowdhury MD alcohol use, type wine- seldom Daniel rodriguez MD caffeine use, averag e drinks per day 2 /d Daniel Chowdhury MD drug use no Daniel Chowdhury MD passive cigarette sm kevin exposure no Daniel Chowdhury MD smoking status Former smoker Daniel Chowdhury MD social history reviewed E&M reviewed Rigo Mcclain RN social history reviewed E&M reviewed Daniel Chowdhury MD caffeine use, averag e drinks per day 2 /d [place] [facility], average drinks per day 0 /d [place] alcohol use, type wine- seldom Mohan Man ac passive cigarette sm kevin exposure no [place] smoking history, tot al pack/year 1/4 pack per day for 2 years [facility] use, average drinks per day <1 Katelyn Johnson MD social history E&M Marital Statu s: E thnicity: Rigo Mcclain RN social history reviewed E&M reviewed Rigo Mcclain RN drug use none Katelyn Johnson MD smoking history, tot al pack/year 1 pack per week Kaity Peraza smoking, year quit 1974 Kaity stafford smoking status former smoker Kaity santo physical exercise, f requency, days per week yes [facility], averag e drinks per day no [facility] use, average drinks per day social basis only [employer] number of years as a smoker 10 years or m ore [facility] smoking status [facility] FUNCTIONAL STATUS Date Observation Value Provider HRA, CV Assess/Plan, Angina (inactive) Management Plan continue current therapy Daniel Chowdhury MD periodic limb movement index absent (0) Sarahy South HRA, CV Assess/Plan, Angina (inactive) Management Plan continue current therapy Tammy Avila NP HRA, CV Assess/Plan, Angina (inactive) Management Plan continue current therapy Daniel Chowdhury MD MENTAL STATUS Date Observation Value Provider assessment of judgme nt and insight E&M Alert and oriented to time, place and person. Mood and affect are normal. Rigo Mcclain RN assessment of judgme nt and insight E&M Alert and oriented to time, place and person. Mood and affect are normal. Daniel Chowdhury MD assessment of judgme nt and insight E&M Alert and oriented to time, place and person. Mood and affect are normal. 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 One tab. daily Chlorthalidone 25 Mg Oral Tablet (Chlorthalidone) ..... One tab. daily Cardizem Cd 180 Mg Oral Capsule Extended Release 24 Hour (Diltiazem hcl coated beads) ..... Take one pill a day Daniel Chowdhury MD Cardiology Follow up :per PCP. Leti Chowdhury MD Cardiology/MANAGER FUND Manage ment:BP in office and check of home log at goal. No medication changes recommended. She will occasionally check BPs at home. Will f/u with Dr. Chowdhury in January as scheduled. Her updated medication list for this problem includes: Valsartan 320 Mg Oral Tablet (Valsartan) ..... One tab by mouth once daily Chlorthalidone 25 Mg Oral Tablet (Chlorthalidone) ..... One tab. daily Cardizem Cd 180 Mg Oral Capsule Extended Release 24 Hour (Diltiazem hcl coated beads) ..... Take one pill a day Tammy Avila NP Cardiology:BP today within acceptable range although she reports she did not take her meds prior to visit. She monitors pressures at home and it sounds as if they are labile. She will continue current meds, continue to monitor BPs at home and keep a diary which she will bring with her to BP clinic in one month. H er updated medication list for this problem includes: Valsartan 320 Mg Oral Tablet (Valsartan) ..... One tab by mouth once daily Chlorthalidone 25 Mg Oral Tablet (Chlorthalidone) ..... One tab. daily Cardizem Cd 180 Mg Oral Capsule Extended Release 24 Hour (Diltiazem hcl coated beads) ..... Take one pill a day Tammy Avila NP Cardiology:Uncontrol led. Will discontniue amlodipine. D iscontinue Losartan-HCTZ I ncrease Losartan to 100mg daily. S tart Chlorthalidone 25mg daily. S [facility] Blood pressure clinic. & #13;BP today: 177/71 P rior BP: 132/70 (07/10/2017) Prior 10 Yr Risk Heart Disease: N/A (07/10/2017) Daniel Chowdhury MD Cardiology:Uncontrol led. Will discontniue amlodipine. D iscontinue Losartan-HCTZ I ncrease Losartan to 100mg daily. S tart Chlorthalidone 25mg daily. BP today: 177/71 P rior BP: 132/70 (07/10/2017) Prior 10 Yr Risk Heart Disease: N/A (07/10/2017) Daniel Chowdhury MD Cardiology: H er updated medication list for this problem includes: Losartan Potassium-hctz 100-12.5 Mg Oral Tablet (Losartan potassium-hctz) ..... Daily Januvia 100 Mg Oral Tablet (Sitagliptin phosphate) ..... Take one pill a day Metformin Hcl 500 Mg Oral Tablet (Metformin hcl) ..... 1 tab daily Daniel Chowdhury MD Cardiology Daniel Chowdhury MD Cardiology: H er updated medication list for this problem includes: Zetia 10 Mg Oral Tablet (Ezetimibe) ..... Take one pill a day Daniel Chowdhury MD Cardiology:Negative stress test. N o chest pains. Daniel Chowdhury MD Cardiology: H er updated medication list for this problem includes: Zetia 10 Mg Oral Tablet (Ezetimibe) ..... Take one pill a day Tammy Avila NP Cardiology: H er updated medication list for this problem includes: Metformin Hcl 500 Mg Oral Tablet (Metformin hcl) ..... 1 tab daily Januvia 100 Mg Oral Tablet (Sitagliptin phosphate) ..... Take one pill a day Losartan Potassium-hctz 100-12.5 Mg Oral Tablet (Losartan potassium-hctz) ..... Daily Tammy Avila NP Cardiology:Per PCP. W ill check renal artery duplex and exercise stress test to evaluate BP response.. BP today: 140/78 P rior BP: 143/74 (06/27/2016) Tammy Avila NP Cardiology:No chest pain. S tage 2 DD on previous echo. E F 65%. Tammy Avila NP Cardiology New Patie nt : B P today: 143/74 P rior BP: 138/75 (01/21/2014) Daniel Chowdhury MD Cardiology New Patient :Per Dr. Christianson. Daniel Chowdhury MD Cardiology New Patie nt : T he following medications were removed from the medication list: Crestor 20 Mg Tabs (Rosuvastatin calcium) ..... 1 tablet by mouth daily Her updated medication list for this problem includes: Zetia 10 Mg Oral Tabs (Ezetimibe) ..... Take one pill a day Daniel Chowdhury MD Cardiology New Patie nt : T he following medications were removed from the medication list: Aspirin 81 Mg Tabs (Aspirin) ..... 1 tablet by mouth daily Her updated medication list for this problem includes: Cardizem Cd 180 Mg [id number] (Diltiazem hcl coated beads) ..... Take one pill a day Daniel Chowdhury MD test results : T he following medications were removed from the medication list: Losartan Potassium 50 Mg Tabs (Losartan potassium) ..... 1 tablet by mouth daily Hydrochlorothiazide 12.5 Mg Tabs (Hydrochlorothiazide) ..... 1 tablet by mouth daily Her updated medication list for this problem includes: Cardizem Cd 180 Mg [id number] (Diltiazem hcl coated beads) ..... Take one pill a day Aspirin 81 Mg Tabs (Aspirin) ..... 1 tablet by mouth daily Losartan Potassium-hctz 100-12.5 Mg Tabs (Losartan potassium-hctz) ..... Daily Prior BP: 174/90 (07/10/2012) Daniel Chowdhury MD test results : T he following medications were removed from the medication list: Losartan Potassium 50 Mg Tabs (Losartan potassium) ..... 1 tablet by mouth daily Hydrochlorothiazide 12.5 Mg Tabs (Hydrochlorothiazide) ..... 1 tablet by mouth daily Her updated medication list for this problem includes: Cardizem Cd 180 Mg [id number] (Diltiazem hcl coated beads) ..... Take one pill a day Aspirin 81 Mg Tabs (Aspirin) ..... 1 tablet by mouth daily Losartan Potassium-hctz 100-12.5 Mg Tabs (Losartan potassium-hctz) ..... Daily Prior BP: 174/90 (07/10/2012) Daniel Chowdhury MD test results : T he following medications were removed from the medication list: Losartan Potassium 50 Mg Tabs (Losartan potassium) ..... 1 tablet by mouth daily Her updated medication list for this problem includes: Metformin Hcl 500 Mg Tabs (Metformin hcl) ..... 1 tablet by mouth twice daily Aspirin 81 Mg Tabs (Aspirin) ..... 1 tablet by mouth daily Losartan Potassium-hctz 100-12.5 Mg Tabs (Losartan potassium-hctz) ..... Daily BP today: / Prior BP: 174/90 (07/10/2012) Daniel Chowdhury MD test results : H er updated medication list for this problem includes: Crestor 20 Mg Tabs (Rosuvastatin calcium) ..... 1 tablet by mouth daily BP today: / Prior BP: 174/90 (07/10/2012) Daniel Chowdhury MD test results : T he following medications were removed from the medication list: Losartan Potassium 50 Mg Tabs (Losartan potassium) ..... 1 tablet by mouth daily Hydrochlorothiazide 12.5 Mg Tabs (Hydrochlorothiazide) ..... 1 tablet by mouth daily Her updated medication list for this problem includes: Cardizem Cd 180 Mg [id number] (Diltiazem hcl coated beads) ..... Take one pill a day Aspirin 81 Mg Tabs (Aspirin) ..... 1 tablet by mouth daily Losartan Potassium-hctz 100-12.5 Mg Tabs (Losartan potassium-hctz) ..... Daily BP today: / Prior BP: 174/90 (07/10/2012) N uclear Stress Findings: 1. Abnormal Pedro protocol exercise tolerance test showing equivocal ST segment depression with exercise. 2 . Normal left ventricular size and function with a calculated ejection fraction of 73%. 3 . Myocardial scintigraphy is normal without evidence for previous myocardial infarction or reversible ischemia. 4 . On the basis of normal perfusion imaging, the ST segment response with exercise is considered falsely positive for ischemia. - (01/20/2013) Daniel Chowdhury MD test results : H er updated medication list for this problem includes: Cardizem Cd 180 Mg [id number] (Diltiazem hcl coated beads) ..... Take one pill a day Crestor 20 Mg Tabs (Rosuvastatin calcium) ..... 1 tablet by mouth daily Aspirin 81 Mg Tabs (Aspirin) ..... 1 tablet by mouth daily BP today: / Prior BP: 174/90 (07/10/2012) N uclear Stress Findings: 1. Abnormal Pedro protocol exercise tolerance test showing equivocal ST segment depression with exercise. 2 . Normal left ventricular size and function with a calculated ejection fraction of 73%. 3 . Myocardial scintigraphy is normal without evidence for previous myocardial infarction or reversible ischemia. 4 . On the basis of normal perfusion imaging, the ST segment response with exercise is considered falsely positive for ischemia. - (01/20/2013) Daniel Chowdhury MD Follow-up: H er updated medication list for this problem includes: Cardizem Cd 180 Mg [id number] (Diltiazem hcl coated beads) ..... Take one pill a day Crestor 20 Mg Tabs (Rosuvastatin calcium) ..... 1 tablet by mouth daily Aspirin 81 Mg Tabs (Aspirin) ..... 1 tablet by mouth daily Orders: C omplete Echo ([id number]) S tress Test - Nuclear ([id number]) Daniel Chowdhury MD Follow-up: T he following medications were removed from the medication list: Avalide 300-12.5 Mg Tabs (Irbesartan-hydrochlorothiazide) ..... Take one pill a day Her updated medication list for this problem includes: Cardizem Cd 180 Mg [id number] (Diltiazem hcl coated beads) ..... Take one pill a day Aspirin 81 Mg Tabs (Aspirin) ..... 1 tablet by mouth daily Losartan Potassium 50 Mg Tabs (Losartan potassium) ..... 1 tablet by mouth daily Hydrochlorothiazide 12.5 Mg Tabs (Hydrochlorothiazide) ..... 1 tablet by mouth daily Daniel Chowdhury MD Follow-up:174/90 s faye normally has a bp of 130-140 T he following medications were removed from the medication list: Avalide 300-12.5 Mg Tabs (Irbesartan-hydrochlorothiazide) ..... Take one pill a day Her updated medication list for this problem includes: Cardizem Cd 180 Mg [id number] (Diltiazem hcl coated beads) ..... Take one pill a day Aspirin 81 Mg Tabs (Aspirin) ..... 1 tablet by mouth daily Losartan Potassium 50 Mg Tabs (Losartan potassium) ..... 1 tablet by mouth daily Hydrochlorothiazide 12.5 Mg Tabs (Hydrochlorothiazide) ..... 1 tablet by mouth daily Daniel Chowdhury MD Follow-up: T he following medications were removed from the medication list: Avalide 300-12.5 Mg Tabs (Irbesartan-hydrochlorothiazide) ..... Take one pill a day Her updated medication list for this problem includes: Metformin Hcl 500 Mg Tabs (Metformin hcl) ..... 1 tablet by mouth twice daily Aspirin 81 Mg Tabs (Aspirin) ..... 1 tablet by mouth daily Losartan Potassium 50 Mg Tabs (Losartan potassium) ..... 1 tablet by mouth daily Daniel Chowdhury MD Follow-up: H er updated medication list for this problem includes: Crestor 20 Mg Tabs (Rosuvastatin calcium) ..... 1 tablet by mouth daily Daniel Chowdhury MD Follow-up: T he following medications were removed from the medication list: Avalide 300-12.5 Mg Tabs (Irbesartan-hydrochlorothiazide) ..... Take one pill a day Calcium 600-d Tabs (Calcium carbonate-vitamin d tabs) ..... Take one pill aday Her updated medication list for this problem includes: Cardizem Cd 180 Mg [id number] (Diltiazem hcl coated beads) ..... Take one pill a day Aspirin 81 Mg Tabs (Aspirin) ..... 1 tablet by mouth daily Losartan Potassium 50 Mg Tabs (Losartan potassium) ..... 1 tablet by mouth daily Hydrochlorothiazide 12.5 Mg Tabs (Hydrochlorothiazide) ..... 1 tablet by mouth daily Daniel Chowdhury MD Date Name Renal Artery Duplex STR - Routine Complete Echo Complete Echo Stress Test - Nuclea r Complete Echo Cardiopulmonary Stre ss Test Complete Echo Stress Test - Nuclea r HISTORY OF PROCEDURES Procedure Date Procedure Name Provider Procedure Notes S tatus Stress EKG Katelyn Johnson MD complet ed EKG Daniel Chowdhury MD completed SNOMED-CT: [id number] Physical Exam, Performed: Pulse Exam of Foot Daniel Chowdhury MD completed EKG Daniel Chowdhury MD completed SNOMED-CT: [id number] Current Medications Documented Daniel Chowdhury MD completed EKG Daniel Chowdhury MD completed EKG Katelyn Johnson MD complet ed
== END 2024-08-19 10:47 | disposition home or self-care (01) ==
PROVIDERS: PCP Clinical Nurse Specialist; Visit Provider Otolaryngology
DX: J32.4 Chronic pansinusitis (principal)
CPT/HCPCS: 70486

== ENCOUNTER 2024-09-03 01:44 | Day surgery (SDC) | payer MEDICARE, SELFPAY ==
[2024-08-24 14:09] VITALS: BMI 24.0
--- OUTSIDE RECORDS SUMMARY | 2024-09-03 01:47 | XMS_ITS | Clinical Summary ---
Author Organization [facility] Address [address] [place] [address] Care Team Providers Care Help Desk Specialist Name Role Phone Yony Marcelino DO Primary Care Provider [phone]- [phone] Allergies Active Allergy Reactions Criticality Noted Date Comments Aspirin Other (See comments) Low 08/27/2021 Subdural hematoma Codeine Latex Penicillins Ipidoif-Dtl-Plf Reductase Inhibitors Nausea only Medium 05/01/2021 Medications [...] myopathy 11/07/2021 Coronary artery disease invo lving [place] coronary artery of [place] heart without angina pectoris 05/01/2021 Mixed diabetic [...] Care Team Description 08/19/2024 ACO Clinical Pharmacist [facility] Organization [address] [place] [id number] Mandy Wright RPh from Last 3 Months Surgical History Surgery Date Site/Laterality Comments RI CHOLECYSTECTOMY Cholecystectomy - (Added by TW Conv) [...] on file Legal Sex Female 9:45 AM BILLING REP Gender Identity Not on file Sexual Orientation Not on file Obstetrics History Last Filed Vital Signs Vital Sign Reading Time Taken Comments Blood Pressure 162/82 05/30/2024 7:12 PM BILLING REP Pulse 80 05/30/2024 7:12 PM BILLING REP Temperature 36.8 C (98.2 F) 05/30/2024 7:12 PM BILLING REP Respiratory Rate 12 05/30/2024 7:12 PM BILLING REP Oxygen Saturation 97% 05/30/2024 7:12 PM BILLING REP Inhaled Oxygen Concentration - - Weight 67.1 kg (148 lb) 05/30/2024 7:12 PM BILLING REP Height 165.1 cm (5' 5 ) 05/30/2024 7:12 PM BILLING REP Body Mass Index 24.63 05/30/2024 7:12 PM BILLING REP Plan of Treatment Health Maintenance Due Date [...] PCV) 02/20/2022 02/20/2021 Lipid Panel 05/13/2023 05/13/2022, 1212/2020, 11/28/2014 Covid-19 Vaccine ( - season) 2024 02/12/2021, 07/21/2020, 06/30/2020 Influenza Vaccine (Season Ended) 2025 02/21/20 21 Procedures Procedure Name Priority Date/Time Associated Diagnosis Comments POCT LIPID PANEL Routine 05/13/2022 3:07 PM BILLING REP Coronary artery disease involving [place] coronary artery of [place] heart without angina pectoris from Last 3 Months or Most Recently Relevant to Health Maintenance Results * POCT lipid panel (05/13/2022 3:07 PM BILLING REP) Cholesterol, POC 266 mg/dL Comment:GLU = 104 HDL, POC 38 mg/dL Triglycerides, POC 351 mg/dL LDL Cholesterol POC 157 mg/dL Chol/HDL Ratio, POC 4.1 Non-HDL Cholesterol, POC 227 mg/dL Cholesterol Total, POC 266 mg/dL Capillary blood 05/13/2022 3 :07 PM BILLING REP Angelo Fang MD POINT OF CARE TEST ORDER NILES Final Result from Last 3 Months or Most Recently Relevant to Health Maintenance Insurance [facility] MEDICARE MEDICARE [employer] MEDICARE [facility] MEDICARE Care Teams Help Desk Specialist Relationship Specialty Start Date End Date Yony Marcelino DO PCP - General Internal Medicine 05/01/21
--- OUTSIDE RECORDS SUMMARY | 2024-09-03 01:47 | XMS_ITS | Referral Summary ---
Author Organization [facility] Address [address] [place] [address] Care Team Providers Care Purchasing Assistant Name Role Phone Yony Marcelino DO Primary Care Provider [phone]- [phone] Encounters Date Type Department Care Team Description 08/19/2024 ACO Clinical Pharmacist [facility] Accountable Care Organization [address] [place] [id number] Mandy Wright RPh from Last 3 Months Allergies Active Allergy Reactions Criticality Noted Date Comments Aspirin Other (See comments) Low 08/27/2021 Subdural hematoma Codeine Latex Penicillins Jeyingk-Wjv-Ooz Reductase Inhibitors Nausea only Medium 05/01/2021 Medications [...] myopathy 11/07/2021 Coronary artery disease invo lving [place] coronary artery of [place] heart without angina pectoris 05/01/2021 Mixed diabetic [...] on file Legal Sex Female 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 Gender Identity Not on file Sexual Orientation Not on file Last Filed Vital Signs Vital Sign Reading Time Taken Comments Blood Pressure 162/82 05/30/2024 7:12 PM SERVICE EMPLOYEE Pulse 80 05/30/2024 7:12 PM SERVICE EMPLOYEE Temperature 36.8 C (98.2 F) 05/30/2024 7:12 PM SERVICE EMPLOYEE Respiratory Rate 12 05/30/2024 7:12 PM SERVICE EMPLOYEE Oxygen Saturation 97% 05/30/2024 7:12 PM SERVICE EMPLOYEE Inhaled Oxygen Concentration - - Weight 67.1 kg (148 lb) 05/30/2024 7:12 PM SERVICE EMPLOYEE Height 165.1 cm (5' 5 ) 05/30/2024 7:12 PM SERVICE EMPLOYEE Body Mass Index 24.63 05/30/2024 7:12 PM SERVICE EMPLOYEE Plan of Treatment Not on file Procedures Procedure Name Priority Date/Time Associated Diagnosis Comments POCT LIPID PANEL Routine 05/13/2022 3:07 PM SERVICE EMPLOYEE Coronary artery disease involving [place] coronary artery of [place] heart without angina pectoris from Last 3 Months or Most Recently Relevant to Health Maintenance Results * POCT lipid panel (05/13/2022 3:07 PM SERVICE EMPLOYEE) Cholesterol, POC 266 mg/dL Comment:GLU = 104 HDL, POC 38 mg/dL Triglycerides, POC 351 mg/dL LDL Cholesterol POC 157 mg/dL Chol/HDL Ratio, POC 4.1 Non-HDL Cholesterol, POC 227 mg/dL Cholesterol Total, POC 266 mg/dL Capillary blood 05/13/2022 3 :07 PM SERVICE EMPLOYEE Angelo Fang MD POINT OF CARE TEST ORDER NILES Final Result from Last 3 Months or Most Recently Relevant to Health Maintenance Insurance [facility] MEDICARE [facility] MEDICARE Address: [facility] [id number] [place] [address] [place] [address] MEDICARE MEDICARE MEDICARE Care Teams Purchasing Assistant Relationship Specialty Start Date End Date Yony Marcelino DO PCP - General Internal Medicine 05/01/21
--- OUTSIDE RECORDS SUMMARY | 2024-09-03 01:47 | XMS_ITS | Clinical Summary ---
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
[2024-09-03 10:33] VITALS: BP 178/64; PULSE 81; RESP 18; TEMP 36.3; O2SAT 99
[2024-09-03] MEDS: LACTATED RINGERS 1,000 ML 150 ML IV CONT (10:56)
--- NOTE | 2024-09-03 11:01 | WPDANESEPPF ---
Anes - Initial Pre Proc Eval Procedure: Operation Date: 09/03/24 11:30 Proposed Procedures p Colonoscopy - Shawn Boyer MD Date/Time: 09/03/24 11:01 Surgeon: Shawn Boyer MD Pre Op Diagnosis: hx of colon polyps Patient Data Age: 69 Gender: F Height: 1.65 m Weight: 66.5 kg Last Vital Signs Temp 97.3 F L 09/03/24 10:33 Pulse 81 09/03/24 10:33 Resp 18 09/03/24 10:33 BP 178/64 H 09/03/24 10:33 Pulse Ox 99 09/03/24 10:33 O2 Del Method Room Air 09/03/24 10:33 Allergies Allergy/AdvReac Type Severity Reaction Status Date / Time SADIE Inhibitors Allergy Unknown COUGHING Verified 09/03/24 10:28 adhesive tape Allergy Unknown Itching/RED Verified 09/03/24 10:28 NESS fluticasone Allergy Unknown Unknown Verified 09/03/24 10:28 latex Allergy Unknown ITCHING/ROQUE Verified 09/03/24 10:28 H Penicillins Allergy Unknown Rash Verified 09/03/24 10:28 perfumes Allergy Intermediate Swelling Uncoded 09/03/24 10:28 Home Medications ?Medication ?Instructions ?Recorded ?Confirmed ?Type multivitamin 1 tablet PO DAILY 02/09/20 09/03/24 History dorzolamide 2 % eye drops 1 drp ophthalmic (eye) BID 03/22/20 09/03/24 History cholecalciferol (vitamin D3) 25 1,000 unit PO DAILY 08/27/21 09/03/24 History mcg (1,000 unit) capsule chlorthalidone 25 mg tablet 12.5 mg (1/2 x 25 mg) PO DAILY #45 07/31/23 09/03/24 Rx tabs potassium chloride 10 mEq 10 meq PO QPM #90 tabs 07/31/23 09/03/24 Rx tablet,extended release pantoprazole 40 mg tablet,delayed 40 mg PO QAM 12/05/23 09/03/24 History release metaxalone 800 mg tablet 400 mg (1/2 x 800 mg) PO DAILY #20 03/22/24 09/03/24 Rx tabs diltiazem HCl 180 mg 180 mg PO DAILY #90 caps 05/13/24 09/03/24 Rx capsule,extended release 24 hr olmesartan 20 mg tablet 20 mg PO DAILY #90 tabs 06/21/24 09/03/24 Rx evolocumab 140 mg/mL subcutaneous See Rx Instructions .Route 06/28/24 09/03/24 Rx pen injector (Roblesa Reginaick) .COMPLEX #6 mL dulaglutide 0.75 mg/0.5 mL 0.75 mg (0.5 mL) subcut WEEKLY #12 08/02/24 09/03/24 Rx subcutaneous pen injector mL (Trulicity) metoprolol succinate 50 mg 50 mg PO DAILY 08/06/24 09/03/24 History tablet,extended release 24 hr Patient hx anesthesia problems: none Family hx anesthesia problems: none Results Review: All pre-operative results and documents have been reviewed as part of the pre-operative evaluation. [facility] Past Medical History Medical History Type 2 diabetes mellitus Angina pectoris Hyperglycemia Sinusitis Dysphagia Antral gastritis Personal history of colonic polyps Colon cancer screening Adenomatous colon polyp Acute diverticulitis Ventral hernia Umbilical hernia without mention of obstruction or gangrene Left lower quadrant abdominal pain Renal mass Hypercalcemia Screening mammogram, encounter for Need for hepatitis C screening test Hospital discharge follow-up Breast asymmetry in female History of intracranial hemorrhage 2014 Coronary artery disease Mild acid reflux Seasonal allergies Latex allergy High cholesterol Hypertension Vision abnormalities Carpal tunnel syndrome of right wrist Mass of joint of right wrist Fatty liver Osteopenia Heart disease Irritable bowel syndrome Allergies AK (actinic keratosis) Essential (primary) hypertension Gastroesophageal reflux disease Mixed hyperlipidemia Type 2 diabetes mellitus with retinopathy, without long-term current use of insulin Surgical History Surgical History Hx of cholecystectomy H/O: hysterectomy Family History Family History Mother Heart disease Hypertension Diabetes mellitus Father Cancer Other Family history of cardiovascular disease Social History Social History Years smoked: 3 Smoking status: Never smoker Smoking end date: 05/05/73 Alcohol intake: never Alcohol use details: occasional Substance use: never Substance use type: does not use Do You Feel Safe in your Home?: Yes Lack of Transportation: No Lack of Food: Never True Current Housing: I Do Not Have Housing Concerned About Future Housing: No Difficulty Paying Gas/Electric Bills: No Difficulty Paying for Meds: No Currently Unemployed: No Education: High School Diploma/GED Difficulty w/ Childcare or Family Care: No Living arrangements: with family Occupation/Education: retired 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 HTN, hyperlipidemia, DM w good control. Informed Consent: The patient's anesthetic plan and its attendant risks and benefits were discussed with the patient/family/POA. Questions were solicited and answers provided to the satisfaction of the patient/family/POA.
--- NOTE | 2024-09-03 11:32 | P.HP_ITS ---
H&P: HPI History of Present Illness Date/Time: 09/03/24 11:32 Chief Complaint: History of colon polyps Narrative: The patient has a history of colonic polyps, the last colonoscopy was 3 years ago. Review of Systems Review of Systems: All systems reviewed & are unremarkable except as noted in HPI and below [facility] Past Medical History Medical History (Updated 09/03/24 @ 11:33 by Shawn Boyer MD) Adenomatous colon polyp Type 2 diabetes mellitus Angina pectoris Hyperglycemia Sinusitis Dysphagia Antral gastritis Personal history of colonic polyps Colon cancer screening Acute diverticulitis Ventral hernia Umbilical hernia without mention of obstruction or gangrene Left lower quadrant abdominal pain Renal mass Hypercalcemia Screening mammogram, encounter for Need for hepatitis C screening test Hospital discharge follow-up Breast asymmetry in female History of intracranial hemorrhage 2014 Coronary artery disease Mild acid reflux Seasonal allergies Latex allergy High cholesterol Hypertension Vision abnormalities Carpal tunnel syndrome of right wrist Mass of joint of right wrist Fatty liver Osteopenia Heart disease Irritable bowel syndrome Allergies AK (actinic keratosis) Essential (primary) hypertension Gastroesophageal reflux disease Mixed hyperlipidemia Type 2 diabetes mellitus with retinopathy, without long-term current use of insulin Surgical History Surgical History Hx of cholecystectomy H/O: hysterectomy Family History Family History Mother Heart disease Hypertension Diabetes mellitus Father Cancer Other Family history of cardiovascular disease Social History Social History Years smoked: 3 Smoking status: Never smoker Smoking end date: 05/05/73 Alcohol intake: never Alcohol use details: occasional Substance use: never Substance use type: does not use Do You Feel Safe in your Home?: Yes Lack of Transportation: No Lack of Food: Never True Current Housing: I Do Not Have Housing Concerned About Future Housing: No Difficulty Paying Gas/Electric Bills: No Difficulty Paying for Meds: No Currently Unemployed: No Education: High School Diploma/GED Difficulty w/ Childcare or Family Care: No Living arrangements: with family Occupation/Education: 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 Gender identity (if verbalized by the patient): Female Spiritual care concerns: No Meds Home Medications and Allergies Home Medications ?Medication ?Instructions ?Recorded ?Confirmed ?Type multivitamin 1 tablet PO DAILY 02/09/20 09/03/24 History dorzolamide 2 % eye drops 1 drp ophthalmic (eye) BID 03/22/20 09/03/24 History cholecalciferol (vitamin D3) 25 1,000 unit PO DAILY 08/27/21 09/03/24 History mcg (1,000 unit) capsule chlorthalidone 25 mg tablet 12.5 mg (1/2 x 25 mg) PO DAILY #45 07/31/23 09/03/24 Rx tabs potassium chloride 10 mEq 10 meq PO QPM #90 tabs 07/31/23 09/03/24 Rx tablet,extended release pantoprazole 40 mg tablet,delayed 40 mg PO QAM 12/05/23 09/03/24 History release metaxalone 800 mg tablet 400 mg (1/2 x 800 mg) PO DAILY #20 03/22/24 09/03/24 Rx tabs diltiazem HCl 180 mg 180 mg PO DAILY #90 caps 05/13/24 09/03/24 Rx capsule,extended release 24 hr olmesartan 20 mg tablet 20 mg PO DAILY #90 tabs 06/21/24 09/03/24 Rx evolocumab 140 mg/mL subcutaneous See Rx Instructions .Route 06/28/24 09/03/24 Rx pen injector (Arsen Martinez) .COMPLEX #6 mL dulaglutide 0.75 mg/0.5 mL 0.75 mg (0.5 mL) subcut WEEKLY #12 08/02/24 09/03/24 Rx subcutaneous pen injector mL (Trulicity) metoprolol succinate 50 mg 50 mg PO DAILY 08/06/24 09/03/24 History tablet,extended release 24 hr Allergies Allergy/AdvReac Type Severity Reaction Status Date / Time SADIE Inhibitors Allergy Unknown COUGHING Verified 09/03/24 10:28 adhesive tape Allergy Unknown Itching/RED Verified 09/03/24 10:28 NESS fluticasone Allergy Unknown Unknown Verified 09/03/24 10:28 latex Allergy Unknown ITCHING/ROQUE Verified 09/03/24 10:28 H Penicillins Allergy Unknown Rash Verified 09/03/24 10:28 perfumes Allergy Intermediate Swelling Uncoded 09/03/24 10:28 Vital Signs Vital Signs - 24 hr 09/03/24 10:33 Temperature 97.3 F L Pulse Rate 81 Respiratory Rate 18 Blood Pressure 178/64 H Pulse Oximetry 99 Oxygen Delivery Room Air Exam Const: General: cooperative and healthy appearing Resp: Effort & Inspection: normal respiratory effort and able to speak in complete sentences Auscultation: clear to auscultation bilaterally Cardio: Rate: regular rate Rhythm: regular rhythm GI: Inspection: normal to inspection GI Palp: No No hepatosplenomegaly present Auscultation: normal bowel sounds Rectal Exam: deferred Skin: General skin exam: normal color Psych: Appearance: grossly normal Mental Status: mental status grossly normal Assessment and Plan Assessment and plan (1) Adenomatous colon polyp: Code(s): D12.6 - Benign neoplasm of colon, unspecified Status: Acute Assessment and Plan: The patient is deemed a good candidate for the procedure. Consent signed. Will proceed.
[2024-09-03] MEDS: SIMETHICONE ORAL SUSPENSION 20 MG/0.3 ML 30 ML BOTTLE 0.6 ML IRRIGATION (11:48)
[2024-09-03 12:04] VITALS: BP 162/78; PULSE 104; RESP 18; O2SAT 99
[2024-09-03 12:14] VITALS: BP 155/77; PULSE 70; RESP 20; O2SAT 99
[2024-09-03 12:24] VITALS: BP 167/83; PULSE 68; RESP 17; O2SAT 99
== END 2024-09-03 12:33 | disposition home or self-care (01) ==
PROVIDERS: PCP Internal Medicine; Referring Provider Internal Medicine Gastroenterology; Visit Provider Internal Medicine Gastroenterology
PROC: 0DJD8ZZ Inspection of Lower Intestinal Tract, Via Natural or Artificial Opening Endoscopic (ICD-10-PCS; CPT 45378; principal; 2024-09-03 11:30)
DX: Z12.11 Encounter for screening for malignant neoplasm of colon (principal); K63.5 Polyp of colon; K64.8 Other hemorrhoids; K57.30 Diverticulosis of large intestine without perforation or abscess without bleeding; E11.319 Type 2 diabetes mellitus with unspecified diabetic retinopathy without macular edema; K58.9 Irritable bowel syndrome, unspecified; E78.2 Mixed hyperlipidemia; I25.10 Atherosclerotic heart disease of native coronary artery without angina pectoris; K21.9 Gastro-esophageal reflux disease without esophagitis; I11.9 Hypertensive heart disease without heart failure; E83.52 Hypercalcemia; G56.01 Carpal tunnel syndrome, right upper limb; M85.88 Other specified disorders of bone density and structure, other site; L57.0 Actinic keratosis; Z79.85 Long-term (current) use of injectable non-insulin antidiabetic drugs; Z98.890 Other specified postprocedural states; Z90.49 Acquired absence of other specified parts of digestive tract; Z87.19 Personal history of other diseases of the digestive system; Z80.9 Family history of malignant neoplasm, unspecified; Z82.49 Family history of ischemic heart disease and other diseases of the circulatory system
CPT/HCPCS: 45385; 88305; J7120

== ENCOUNTER 2024-12-03 09:49 | Outpatient (CLI) | payer MEDICARE, SELFPAY ==
--- NOTE | ~2024-12-03 | MM_ITS ---
EXAMINATION: MM screening nancy BI w amanda HISTORY: Screening TECHNIQUE: Craniocaudal and mediolateral oblique 3-D tomosynthesis images were obtained and synthetic 2-D images were generated. CAD analysis was submitted and interpreted. COMPARISON: Comparison to multiple prior studies sequentially, with oldest reviewed study dated 08/2017. BREAST PARENCHYMAL COMPOSITION: Not dense: There are scattered areas of fibroglandular density. FINDINGS: Left breast is stable without evidence for malignancy. Increasing density of subareolar asy mmetry in the right breast. The left breast is stable without evidence for malignancy. IMPRESSION: 1. Focal right breast asymmetry subareolar location, with increasing density compared with prior stud ies. 2. Additional mammographic views and possible breast ultrasound are recommended. BI-RADS Category 0: Incomplete: Needs additional imaging evaluation. Reviewed, dictated and finalized at location B. IMPRESSION: 1. Focal right breast asymmetry subareolar location, with increasing density co mpared with prior studies. 2. Additional mammographic views and possible breast ultrasound are recommended . BI-RADS Category 0: Incomplete: Needs additional imaging evaluation.
--- OUTSIDE RECORDS SUMMARY | 2024-12-03 09:54 | XMS_ITS | Encounter Summary ---
Author Organization [facility] Healthcare Address [address] [place] [address] Care Team Providers Care Newspaper Carrier Name Role Phone Yony Marcelino DO Primary Care Provider +1- [phone] Reason for Visit * Reason Comments Follow-up 7 MO Encounter Details Date Type Department Care Team (Late st Contact Info) Description 12/02/2024 1:00 PM CDT Office Visit [facility] Cardiology [address] [facility] [address] [place] [id number] Iman Nolasco NP [address] [facility] [address] [place] [address] Palpitations; Coronary artery disease involving [place] coronary artery of [place] heart without angina pectoris; Hypertension associated with diabetes (HCC); Statin intolerance; History of subdural hematoma Social History Tobacco Use Types Packs/Day Years Used Date Smoking Tobacco: Former Tobacco Cessation:Counseling Given: Not Answered Comments Unknown Sex and Gender Information Value Date Recorded Sex Assigned at Not on file 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 Gender Identity Not on file Sexual Orientation Not on file documented as of this encounter Last Filed Vital Signs Vital Sign Reading Time Taken Comments Blood Pressure 138/70 12/02/2024 1:05 PM CDT Pulse 70 12/02/2024 1:05 PM CDT Temperature - - Respiratory Rate - - Oxygen Saturation 97% 12/02/2024 1:05 PM CDT Inhaled Oxygen Concentration - - Weight 69.4 kg (153 lb) 12/02/2024 1:05 PM CDT Height 165.1 cm (5' 5) 12/02/2024 1:05 PM CDT Body Mass Index 25.46 12/02/2024 1:05 PM CDT documented in this encounter Ordered Prescriptions Prescription Sig Dispense Quantity Refills Last Filled Start Date End Date metoprolol XL (TOPROL-XL) 50 mg extended release tabletIndications: Palpitations Take 0.5 tablets (25 mg total) by mouth daily 12/02/2024 documented in this encounter Progress Notes * Iman Nolasco NP - 12/02/2024 1:00 PM CDT Images from the original note were not included. [facility] Cardiology [address] [place] [address] Date of Visit: 12/02/2024 Patient ID: Ilda Thomas 1955 Chief Complaint Patient presents with Follow-up 7 MO Ilda Thomas is a 69 y.o. female who is a former patient of Dr. Fang with a reported history ofCAD when under the care of a previous emergency medical tech, coming to the office for routine follow-up. History of Present Illness: Ilda Thomas is a 69 y.o. female with a PMHx of CAD on remote [facility] (pt reported), DM, HTN, dyslipidemia seen in very kind referral by Yony Marcelino DO for my opinion regarding cardiovascular evaluation and to establish care. 05/01/21 Initial visit: Pt states she knows she has a blockage in her heart and wanted to establish a Supervisor Phosphorus Processing. Previously seen by Dr. Chowdhury at [facility]. She had Echo, stress test, renal dopplers. She notes a pressure in her chest with activity many years ago had seen another Supervisor Phosphorus Processing and had a [facility] no intervention needed but she cannot recall who or where this was performed at all. Notes her heart rate picks up andthen can feel a little pressure in strenuous activity. She notes being told blockage in her arteries on CXR. She used to take ASA daily but stopped due to bruising. Had a brain bleed felt like she had [place] transferred to [place] a few years back nontraumatic no clear explanation. Told not to take ASA since then. BP had been well controlled 120/60's until she started Trulicity and has gotten much higher past 2 months. She mentions intolerance to statin therapy GI side effects nausea has tried several did not do welland also mentions PCP setting up for shots sounds like PCSK9 inhibitor therapy but insurance issues. Has upcoming colonoscopy. She adds that when chlorthalidone was added to her medical therapy herblood pressure was markedly improved until Trulicity was started. Overall, she generally feels reasonably well denies new concerns or problems. She simply wanted to establish with a new heart doctor just in case something were to happen so that she would have someone to see. No history of smoking, DVT/PE, atrial fibrillation or embolic stroke. Records pertaining to subdural hematoma 2015: Hospital Course: Patient Martha arrived to [facility] on 11-28-14 for further evaluation of her SDH. She underwent a chest and abdomen CT that was unremarkable. She also underwent a head CT that showed an unchanged small right frontoparietal subdural hematoma. A normal CT angiogram of the head without underlying arteriovenous malformation. PT/OT saw the patient and recommended home with 24 hour assistance. A brain MRI on 11-30-14 showed Right subdural hematoma appears more extensive than on the prior CT examination. No evidenceof vascular malformation in brain parenchyma. She was tolerating PO medication and nutrition, was ambulating freely, and voiding without difficulty. She was deemed stable for discharge to home on 12-01-[address] Nation she complaint of worsening palpitations and a mobile hospital monitor was performed that showed very small number of PVCs. She was offered the option to startmetoprolol. 12/02/2024 office visit with MDM DEVELOPER: She is here for routine follow-up and wants to discuss the resultsof her heart monitor in more detail. She has been cutting the 50 mg tablet of metoprolol in half because she felt too tired when she took the whole 50 mg. She takes it in the evening. She was not sure if she should still be taking her diltiazem with it so she stopped the diltiazem. Overall she feels her palpitations are a little better controlled on the metoprolol. Sometimes she notices the palpitations at night other times she notices them when she is moving around or going up the stairs. Withexertion there is sometimes a sense of pressure in her chest. She also notes intermittent dyspnea on exertion which has been present for awhile. And she gets occasional dizzy spells particularly with changing positions quickly. 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 Medical History: Past Medical History: Diagnosis Date Hypertension Personal history of other diseases of the circulatory system History of hypertension - (Added by TW Conv) Personal history of other endocrine, nutritional and metabolic disease History of hypercholesterolemia - (Added by TW Conv) Personal history of other endocrine, nutritional and metabolic disease History of diabetes mellitus - (Added by Conv) Personal history of other specified conditions History of chest pain - (Added by TW Conv) Past Surgical History: Procedure Laterality Date [place] CHOLECYSTECTOMY Cholecystectomy - (Added by TW Conv) Social History Tobacco Use Smoking Status Former Smokeless Tobacco Not on file Social History Tobacco Use Smoking status: Former Smokeless tobacco: None Substance and Sexual Activity Drug use: Not Currently Sexual activity: None Alcohol Use: Not on file Family History Problem Relation Age of Onset Heart disease Other Family history of cardiac disorder - (Added by Conv) Hypertension Other Family history of hypertension - (Added by ) Heart disease Mother Diabetes Mother Review of Systems Constitutional: Negative for malaise/fatigue, weight gain and weight loss. Cardiovascular: Positive for chest pain, dyspnea on exertion and palpitations. Negative for leg swelling, near-syncope, orthopnea, paroxysmal nocturnal dyspnea and syncope. Respiratory: Negative for cough and sleep disturbances due to breathing. Hematologic/Lymphatic: Negative for bleeding problem. Does not bruise/bleed easily. Vital Signs: BP 138/70 (BP Location: Right arm, Patient Position: Sitting) Pulse 70 Ht 165.1 cm (5' 5) Wt69.4 kg (153 lb) SpO2 97% BMI 25.46 kg/m?? Physical Exam Constitutional: General: She is not in acute distress. Appearance: She is well-developed. HENT: Head: Normocephalic and atraumatic. Eyes: General: No scleral icterus. Conjunctiva/sclera: Conjunctivae normal. Neck: Vascular: No JVD. Trachea: No tracheal deviation. Cardiovascular: Rate and Rhythm: Normal rate and regular rhythm. Heart sounds: Normal heart sounds. No murmur heard. Pulmonary: Effort: Pulmonary effort is normal. No respiratory distress. Breath sounds: Normal breath sounds. Comments: Diminished but clear Skin: General: Skin is warm and dry. Neurological: Mental Status: She is alert and oriented to person, place, and time. Psychiatric: Mood and Affect: Mood normal. Behavior: Behavior normal. Allergies Allergen Reactions Rspimrl-Edz-Bwf Reductase Inhibitors Nausea only Codeine Latex Penicillins Aspirin Other (See comments) Subdural hematoma Current Outpatient Medications: chlorthalidone 25 mg tablet, Take by mouth, Disp: , Rfl: dorzolamide (TRUSOPT) 2 % ophthalmic solution, , Disp: , Rfl: metaxalone (SKELAXIN) 800 mg tablet, Take 0.5 tablets (400 mg total) by mouth as needed, Disp: , Rfl: multivitamin tablet, Take 1 tablet by mouth, Disp: , Rfl: olmesartan (BENICAR) 20 mg tablet, Take 1 tablet (20 mg total) by mouth daily, Disp: , Rfl: pantoprazole DR (PROTONIX) 40 mg EC tablet, Take by mouth as needed, Disp: , Rfl: potassium chloride ER 10 mEq CR tablet, , Disp: , Rfl: Repatha SureClick 140 mg/mL pen injector, INJECT 140MG UNDER THE SKIN ONCE EVERY 2 WEEKS, Disp: , Rfl: Trulicity 0.75 mg/0.5 mL pen injector, , Disp: , Rfl: metoprolol XL (TOPROL-XL) 50 mg extended release tablet, Take 0.5 tablets (25 mg total) by mouth daily, Disp: , Rfl: Lab Results Component Value Date POTASSIUM 3.7 12/01/2014 BUNSER 10 12/01/2014 CREATININE 0.51 (L) 12/01/2014 CHOL 195 11/28/2014 TRIG 244 (H) 11/28/2014 LDL 101 11/28/2014 HDL 45 11/28/2014 Lab Results Component Value Date HGB 11.7 (L) 12/01/2014 HCT 35.6 (L) 12/01/2014 MCV 87.6 12/01/2014 No results found for this or any previous visit (from the past 4 hours). Lab Results Component Value Date POCCHOL 266 05/13/2022 POCHDL 38 05/13/2022 POCTRIG 351 05/13/2022 POCLDL 157 05/13/2022 POCNONHDL 227 05/13/2022 POCCHLPL 266 05/13/2022 CARDIAC IMAGING RESULTS: Nuclear Stress Test 10/15/2021: No diagnostic ST changes. Myocardial perfusion imaging is normal. Global left ventricular function is normal. Left ventricular ejection fraction is 77 %. Assessment: Diagnoses and all orders for this visit: Palpitations - metoprolol XL (TOPROL-XL) 50 mg extended release tablet; Take 0.5 tablets (25 mg total) by mouth daily Coronary artery disease involving [place] coronary artery of [place] heart without angina pectoris Hypertension associated with diabetes (HCC) Statin intolerance History of subdural hematoma Plan/Recommendations: Her mobile hospital monitor 7 months ago was essentially benign with a very small number of PVCs. Continue metoprolol. She has a history of reported coronary artery disease without intervention when she was under the care of a previous emergency medical tech. Stress test and October 2021 showed no ischemia. She does endorse some exertional chest pressure with palpitations which could be anginal. I advised her to monitor this for progression and I recommend follow-up in a closer in time of 3 months. Blood pressure tends to run systolic 130s to 140s. Continue olmesartan, chlorthalidone, metoprolol. Continue to monitor. She has a history of statin intolerance. Continue Repatha. She has a history of spontaneous/idiopathic subdural hematoma and reports that the neurologist caring for at that time advised not to resume aspirin in the future. Diabetes is being treated with Trulicity. Return to the office for follow-up with me in 3 months. At the next visit we can discuss transitioning her care from Dr. Nation to another emergency medical tech. 12/02/2024 ALEXANDRA Munoz- Nurse Practition[place] [facility] [place] This note is dictated and transcribed using [employer] Direct Software. Programmer Developer variancesmay occur. Despite proofreading, typographical errors may occur. documented in this encounter Plan of Treatment Not on file documented as of this encounter Visit Diagnoses Diagnosis Palpitations Coronary artery disease involving [place] coronary artery of [place] heart without angina pectoris Hypertension associated with diabetes (HCC) Unspecified essential hypertension Statin intolerance History of subdural hematoma documented in this encounter Discontinued Medications Medication Sig Discontinue Reason Start Date End Da te dilTIAZem CD 180 mg 24 hr capsule Alternate therapy 03/13/2021 12/02/2024 metoprolol XL (TOPROL-XL) 50 mg extended release tabletIndications:Palpit ations Take 1 tablet (50 mg total) by mouth daily 04/22/2024 12/02/2024 documented as of this encounter Care Teams Newspaper Carrier Relationship Specialty Start Date End Date Yony Marcelino DO PCP - General Internal Medicine 05/01/21 documented as of this encounter
--- OUTSIDE RECORDS SUMMARY | 2024-12-03 09:54 | XMS_ITS | Encounter Summary ---
Author Organization [facility] (?) Address 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 Jett Merchant MD [address] [address] Coronary Atherosclerosis of [place] Coronary Artery (Primary Dx); Other Nonspecific Abnormal [...] on file Legal Sex Female 5:30 AM APPLICATIONS PROCESSOR Gender Identity Not on file Sexual Orientation Not on file documented as of this encounter Plan of Treatment Not on file documented as of this encounter Procedures Procedure Name Priority Date/Time Associated Diagnosis Comments POC GLUCOSE Routine 03/16/2007 8:49 AM APPLICATIONS PROCESSOR documented in this encounter Results * (ABNORMAL) POC GLUCOSE (03/16/2007 8:49 AM APPLICATIONS PROCESSOR) GLUCOSE POC 135(H) 65 - 99 mg/dL INTERFACE SYSTEM 03/16/2007 8:49 AM APPLICATIONS PROCESSOR us Jett Oconnell MD POINT OF CARE TESTING Shine abdoulaye INTERFACE SYSTEM Refer to clinic/hospital department documented in this encounter Visit Diagnoses Diagnosis Coronary atherosclerosis of [place] coronary artery- Primary Other nonspecific abnormal cardiovascular system function study Unspecified essential hypertension Type II or unspecified type diabetes mellitus without mention of complication, not stated as uncontrolled Other and unspecified hyperlipidemia Encounter for long-term (current) use of aspirin Personal history of tobacco use, presenting hazards to health documented in this encounter Care Teams Injection Molding Machine Tender Relationship Specialty Start Date End Date Paul Garg MD [address] [place] [id number] PCP - General 03/16/07 documented as of this encounter
--- OUTSIDE RECORDS SUMMARY | 2024-12-03 09:54 | XMS_ITS | Referral Summary ---
Author Organization [facility] Address [address] [place] [address] Care Team Providers Care Putty Glazer Name Role Phone Yony Marcelino DO Primary Care Provider +1- [phone] Encounters Date Type Department Care Team Description 12/02/2024 1:00 PM CDT Office Visit [facility] Medical [facility] Cardiology [address] [place] [address] Iman Nolasco NP Palpitations; Coronary artery disease involving [place] coronary artery of [place] heart without angina pectoris; Hypertension associated with diabetes (HCC); Statin intolerance; History of subdural hematoma 11/19/2024 ACO Clinical Pharmacist [address] [address] Ginger Christie RPh 11/09/[address] [address] Soraida Tang Chart Review ([employer] Medication Adherence ) 10/20/[address] [address] Monica Parmar Unsuccessful Phone Call 1 ([employer] dm eye ) from Last 3 Months Allergies Active Allergy Reactions Criticality Noted Date Comments Aspirin Other (See comments) Low 08/27/2021 Subdural hematoma Codeine Latex Penicillins Wpqtbav-Hqu-Gbj Reductase Inhibitors Nausea only Medium 05/01/2021 Medications olmesartan (BENICAR) 20 mg tablet Take 1 tablet (20 mg total) by mouth daily Active chlorthalidone 25 mg tablet Take by mouth 07/18/19 18 Active Trulicity 0.75 mg/0.5 mL pen injector 04/19/20 21 Active potassium chloride ER 10 mEq CR tablet 03/07/20 21 Active dorzolamide (TRUSOPT) 2 % ophthalmic solution 02/16/20 21 Active metaxalone (SKELAXIN) 800 mg tablet Take 0.5 tablets (400 mg total) by mouth as needed 07/11/[address] (PROTONIX) 40 mg EC tablet Take by mouth as needed 06/26/19 18 Active Repatha SureClick 140 mg/mL pen injector INJECT 140MG UNDER THE SKIN ONCE EVERY 2 WEEKS 08/08/19 24 Active multivitamin tabletIndicati ons:Vitamin Deficiency Prevention Take 1 tablet by mouth Active metoprolol XL (TOPROL-XL) 50 mg extended release tabletIndicati ons:Palpitatio ns Take 0.5 tablets (25 mg total) by mouth daily 12/03/19 25 026 Active dilTIAZem CD 180 mg 24 hr capsule 03/13/20 21 025 Discontinued(Al ternate therapy) metoprolol XL (TOPROL-XL) 50 mg extended release tabletIndicati ons:Palpitatio ns Take 1 tablet (50 mg total) by mouth daily 30 tablet 11 04/22/20 24 025 Discontinued Active Problems Problem Noted Date Diagnosed Date Palpitations 04/08/2024 Diabetes mellitus 06/28/2022 Statin myopathy 11/07/2021 Coronary artery disease invo lving [place] coronary artery of [place] heart without angina pectoris 05/01/2021 Mixed diabetic [...] on file Legal Sex 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 Gender Identity Not on file Sexual Orientation Not on file Last Filed Vital Signs Vital Sign Reading Time Taken Comments Blood Pressure 138/70 12/02/2024 1:05 PM CDT Pulse 70 12/02/2024 1:05 PM CDT Temperature 36.8 C (98.2 F) 05/30/2024 7:12 PM BATH TESTER Respiratory Rate 12 05/30/2024 7:12 PM BATH TESTER Oxygen Saturation 97% 12/02/2024 1:05 PM CDT Inhaled Oxygen Concentration - - Weight 69.4 kg (153 lb) 12/02/2024 1:05 PM CDT Height 165.1 cm (5' 5) 12/02/2024 1:05 PM CDT Body Mass Index 25.46 12/02/2024 1:05 PM CDT Plan of Treatment Not on file Procedures Procedure Name Priority Date/Time Associated Diagnosis Comments POCT LIPID PANEL Routine 05/13/2022 3:07 PM BATH TESTER Coronary artery disease involving [place] coronary artery of [place] heart without angina pectoris from Last 3 Months or Most Recently Relevant to Health Maintenance Results * POCT lipid panel (05/13/2022 3:07 PM BATH TESTER) Cholesterol, POC 266 mg/dL Comment:GLU = 104 HDL, POC 38 mg/dL Triglycerides, POC 351 mg/dL LDL Cholesterol POC 157 mg/dL Chol/HDL Ratio, POC 4.1 Non-HDL Cholesterol, POC 227 mg/dL Cholesterol Total, POC 266 mg/dL Capillary blood 05/13/2022 3 :07 PM BATH TESTER Angelo Fang MD POINT OF CARE TEST ORDER NILES Final Result from Last 3 Months or Most Recently Relevant to Health Maintenance Insurance [employer] MEDICARE AET MEDICARE AET MEDICARE AETNA MEDICARE Care Teams Putty Glazer Relationship Specialty Start Date End Date Yony Marcelino DO PCP - General Internal Medicine 05/01/21
--- OUTSIDE RECORDS SUMMARY | 2024-12-03 09:54 | XMS_ITS | Clinical Summary ---
Author Organization [facility] Address [address] [place] [address] Care Team Providers Care Energy Trading Analyst Name Role Phone Yony Marcelino DO Primary Care Provider +1- [phone] Allergies Active Allergy Reactions Criticality Noted Date Comments Aspirin Other (See comments) Low 08/27/2021 Subdural hematoma Codeine Latex Penicillins Kyybxzi-Wdj-Atm Reductase Inhibitors Nausea only Medium 05/01/2021 Medications [...] myopathy 11/07/2021 Coronary artery disease invo lving [place] coronary artery of [place] heart without angina pectoris 05/01/2021 Mixed diabetic [...] Description 12/02/2024 1:00 PM CDT Office Visit [facility] Cardiology [address] [facility] [address] [place] [address] Iman Nolasco NP Palpitations; Coronary artery disease involving [place] coronary artery of [place] heart without angina pectoris; Hypertension associated with diabetes (HCC); Statin intolerance; History of subdural hematoma 11/19/2024 ACO Clinical Pharmacist [address] [address] Ginger Christie RPh 11/09/[address] [address] Soraida Tang Chart Review ([employer] Medication Adherence ) 10/20/[address] [address] Monica Parmar Unsuccessful Phone Call 1 ([place] dm eye ) from Last 3 Months Surgical History Surgery Date Site/Laterality Comments [place] CHOLECYSTECTOMY Cholecystectomy - (Added by TW Conv) [...] on file Legal Sex Female 9:45 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 Gender Identity Not on file Sexual Orientation Not on file Obstetrics History Last Filed Vital Signs Vital Sign Reading Time Taken Comments Blood Pressure 138/70 12/02/2024 1:05 PM CDT Pulse 70 12/02/2024 1:05 PM CDT Temperature 36.8 C (98.2 F) 05/30/2024 7:12 PM LCAC RADAR OPERATOR/NAVIGATOR Respiratory Rate 12 05/30/2024 7:12 PM LCAC RADAR OPERATOR/NAVIGATOR Oxygen Saturation 97% 12/02/2024 1:05 PM CDT Inhaled Oxygen Concentration - - Weight 69.4 kg (153 lb) 12/02/2024 1:05 PM CDT Height 165.1 cm (5' 5) 12/02/2024 1:05 PM CDT Body Mass Index 25.46 12/02/2024 1:05 PM CDT Plan of Treatment Health Maintenance Due Date [...] PCV) 02/20/2022 02/20/2021 Lipid Panel 05/13/2023 05/13/2022, 12/12/2020, 11/28/2014 Covid-19 Vaccine (4 - season) 2024 02/12/2021, 07/21/2020, 06/30/2020 Influenza Vaccine (#1) 2025 02/20/2021 Procedures Procedure Name Priority Date/Time Associated Diagnosis Comments POCT LIPID PANEL Routine 05/13/2022 3:07 PM LCAC RADAR OPERATOR/NAVIGATOR Coronary artery disease involving [place] coronary artery of [place] heart without angina pectoris from Last 3 Months or Most Recently Relevant to Health Maintenance Results * POCT lipid panel (05/13/2022 3:07 PM LCAC RADAR OPERATOR/NAVIGATOR) Cholesterol, POC 266 mg/dL Comment:GLU = 104 HDL, POC 38 mg/dL Triglycerides, POC 351 mg/dL LDL Cholesterol POC 157 mg/dL Chol/HDL Ratio, POC 4.1 Non-HDL Cholesterol, POC 227 mg/dL Cholesterol Total, POC 266 mg/dL Capillary blood 05/13/2022 3 :07 PM LCAC RADAR OPERATOR/NAVIGATOR Angelo Fang MD POINT OF CARE TEST ORDER NILES Final Result from Last 3 Months or Most Recently Relevant to Health Maintenance Insurance [employer] MEDICARE AET MEDICARE AETNA MEDICARE Care Teams Energy Trading Analyst Relationship Specialty Start Date End Date Yony Marcelino DO PCP - General Internal Medicine 05/01/21
--- OUTSIDE RECORDS SUMMARY | 2024-12-03 09:54 | XMS_ITS | Clinical Summary ---
Author Organization [facility] Address [address] [facility] Attn: Epic Prelude ADT [place] [address] Care Team Providers Care Clothes Presser Name Role Phone Paul Garg MD Primary Care Provider + Social History Tobacco Use Types Packs/Day Years Used Date Smoking Tobacco: Never Assessed Comments Unknown Sex and Gender Information Value Date Recorded Sex Assigned at Not on file Legal Sex Female 5:30 AM HOOK TENDER Gender Identity Not on file Sexual Orientation [...] 2004 OSTEOPOROSIS SCREENING 2019 INFLUENZA VACCINE (#1) 2024 RSV VACCINE (60+ or ) (1 - 1-dose 75+ series) 2029 Care Teams Clothes Presser Relationship Specialty Start Date End Date Paul Garg MD [address] [place] [id number] PCP - General 03/16/07
== END 2024-12-03 09:50 | disposition home or self-care (01) ==
LOC: ANHIMG 09:51
PROVIDERS: PCP Internal Medicine; Visit Provider Student in an Organized Health Care Education/Training Program
DX: Z12.31 Encounter for screening mammogram for malignant neoplasm of breast (principal); R92.8 Other abnormal and inconclusive findings on diagnostic imaging of breast
CPT/HCPCS: 77063; 77067

== ENCOUNTER 2024-12-30 12:49 | Outpatient (CLI) | payer MEDICARE, SELFPAY ==
--- NOTE | ~2024-12-30 | MM_ITS ---
EXAMINATION: MM diagnostic nancy RT w amanda INDICATION: 69-year old female; BI-RADS 0, callback to evaluate Right breast subareolar focal asymmetry. COMPARISON: 12/03/2024 TECHNIQUE: Digital breast tomosynthesis True lateral view and spot compression pain CC and MLO views of Right breast were obtained with computer-aided detection to assist in interpretation of the study. FINDINGS: There are scattered areas of fibroglandular density. The asymmetry seen in the subareolar Right breast on the screening mammogram effaces on additional views, compatible with normal overlapping tissue.. IMPRESSION: Right breast finding represents superimposition of fibroglandular tissue. No further investigation necessary. RECOMMENDATION: Annual screening mammography in 12 months BI-RADS 2, BENIGN Reviewed, dictated and finalized at location B. IMPRESSION: Right breast finding represents superimposition of fibroglandular tissue. No fu rther investigation necessary. RECOMMENDATION: Annual screening mammography in 12 months BI-RADS 2, BENIGN
--- OUTSIDE RECORDS SUMMARY | 2024-12-30 13:03 | XMS_ITS | Clinical Summary ---
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
--- OUTSIDE RECORDS SUMMARY | 2024-12-30 13:03 | XMS_ITS | Encounter Summary ---
Author Organization [employer] Address 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 Gender Identity Not on file Sexual Orientation Not on file documented as of this encounter Plan of Treatment Not on file documented as of this encounter Procedures Procedure Name Priority Date/Time Associated Diagnosis Comments POC GLUCOSE Routine 03/16/2007 8:49 AM COUNTY EXTENSION AGENT documented in this encounter Results * (ABNORMAL) POC GLUCOSE (03/16/2007 8:49 AM COUNTY EXTENSION AGENT) GLUCOSE POC 135(H) 65 - 99 mg/dL INTERFACE SYSTEM 03/16/2007 8:49 AM COUNTY EXTENSION AGENT us Jett Oconnell MD POINT OF CARE TESTING Shine abdoulaye INTERFACE SYSTEM Refer to clinic/hospital department documented in this encounter Visit Diagnoses Diagnosis Coronary atherosclerosis of [place] coronary artery- Primary Other nonspecific abnormal cardiovascular system function study Unspecified essential hypertension Type II or unspecified type diabetes mellitus without mention of complication, not stated as uncontrolled Other and unspecified hyperlipidemia Encounter for long-term (current) use of aspirin Personal history of tobacco use, presenting hazards to health documented in this encounter Care Teams Toddler Caregiver Relationship Specialty Start Date End Date Paul Garg MD [address] [place] [phone] PCP - General 03/16/07 documented as of this encounter
--- OUTSIDE RECORDS SUMMARY | 2024-12-30 13:03 | XMS_ITS | Clinical Summary ---
Author Organization [facility] Address [address] [place] [address] Care Team Providers Care Wire Drawing Machine Tender Name Role Phone Yony Marcelino DO Primary Care Provider [phone]- [phone] Allergies Active Allergy Reactions Criticality Noted Date Comments Aspirin Other (See comments) Low 08/27/2021 Subdural hematoma Codeine Latex Penicillins Wbcbbyw-Yqd-Vgl Reductase Inhibitors Nausea only Medium 05/01/2021 Medications [...] myopathy 11/07/2021 Coronary artery disease invo lving ruby coronary artery of ruby heart without angina pectoris 05/01/2021 Mixed diabetic [...] Encounters Date Type Department Care Team Description 12/07/[address] [address] Kathia Morales Unsuccessful Phone Call 1 (Med adherence) 12/02/2024 1:00 PM CDT Office Visit [facility] [address] [facility] [address] [place] [address] Iman Nolasco NP Palpitations; Coronary artery disease involving ruby coronary artery of ruby heart without angina pectoris; Hypertension associated with diabetes (HCC); Statin intolerance; History of subdural hematoma 11/19/2024 [facility] Clinical Pharmacist [address] [address] Ginger Christie RPh 11/09/[address] [address] Soraida Tang Chart Review ([place] Medication Adherence ) 10/20/2024 [facility]phone [facility] [address] [place], [place] [id number] Monica Parmar Unsuccessful Phone Call 1 ([place] dm eye ) from Last 3 Months Surgical History Surgery Date Site/Laterality Comments [place] CHOLECYSTECTOMY Cholecystectomy - (Added by TW Conv) [...] on file Legal Sex Female 9:45 AM FOOD SERVICES COORDINATOR Gender Identity Not on file Sexual Orientation Not on file Obstetrics History Last Filed Vital Signs Vital Sign Reading Time Taken Comments Blood Pressure 138/70 12/02/2024 1:05 PM CDT Pulse 70 12/02/2024 1:05 PM CDT Temperature 36.8 C (98.2 F) 05/30/2024 7:12 PM FOOD SERVICES COORDINATOR Respiratory Rate 12 05/30/2024 7:12 PM FOOD SERVICES COORDINATOR Oxygen Saturation 97% 12/02/2024 1:05 PM CDT [...] Panel 05/13/2023 05/13/2022, 04/05, 11/28/2014 Covid-19 Vaccine (4 - season) 2024 02/12/2021, 07/21/2020, 06/30/2020 Influenza Vaccine (#1) 2025 02/20/2021 Procedures Procedure Name Priority Date/Time Associated Diagnosis Comments POCT LIPID PANEL Routine 05/13/2022 3:07 PM FOOD SERVICES COORDINATOR Coronary artery disease involving ruby coronary artery of ruby heart without angina pectoris from Last 3 Months or Most Recently Relevant to Health Maintenance Results * POCT lipid panel (05/13/2022 3:07 PM FOOD SERVICES COORDINATOR) Cholesterol, POC 266 mg/dL Comment:GLU = 104 HDL, POC 38 mg/dL Triglycerides, POC 351 mg/dL LDL Cholesterol POC 157 mg/dL Chol/HDL Ratio, POC 4.1 Non-HDL Cholesterol, POC 227 mg/dL Cholesterol Total, POC 266 mg/dL Capillary blood 05/13/2022 3 :07 PM FOOD SERVICES COORDINATOR Angelo Fang MD POINT OF CARE TEST ORDER NILES Final Result from Last 3 Months or Most Recently Relevant to Health Maintenance Insurance T MEDICARE MEDICARE MEDICARE [employer] MEDICARE Care Teams Wire Drawing Machine Tender Relationship Specialty Start Date End Date Yony Marcelino DO PCP - General Internal Medicine 05/01/21
== END 2024-12-30 12:50 | disposition home or self-care (01) ==
LOC: ANHFOHIMG 12:53
PROVIDERS: PCP Internal Medicine; Visit Provider Student in an Organized Health Care Education/Training Program
DX: N64.89 Other specified disorders of breast (principal)
CPT/HCPCS: 77061; 77065; G0279